=== PATIENT | female | born 1960 | race Caucasian/White ===

== ENCOUNTER 2023-03-27 15:36 | Outpatient (OUT) | payer OTHER, SELFPAY ==
[2023-03-27 16:08] LABS: Basophils Absolute Auto 0.1 10^3/uL (0.0-0.1); Basophils Percent Auto 1.3 % (0.2-2.0); Eosinophils Absolute Auto 0.2 10^3/uL (0.0-0.7); Eosinophils Percent Auto 2.8 % (0.9-7.0); Hematocrit 37.6 % (36.0-48.0); Hemoglobin 11.3 g/dL (12.0-16.0); Immature Granulocytes Abs Auto 0.03 10^3/uL (0.00-0.03); Immature Granulocytes Pct Auto 0.4 % (0.0-0.5); Lymphocytes Absolute Auto 2.5 10^3/uL (1.2-3.8); Lymphocytes Percent Auto 32.7 % (20.5-60.0); Mean Corpuscular HGB Conc 30.1 g/dL (29.9-35.2); Mean Corpuscular Hemoglobin 27.5 pg (26.7-34.0); Mean Corpuscular Volume 91.5 fL (81.0-99.0); Mean Platelet Volume 10.1 fL (9.5-13.5); Monocytes Absolute Auto 0.6 10^3/uL (0.3-0.8); Monocytes Percent Auto 7.9 % (1.7-12.0); Neutrophils Absolute Auto 4.3 10^3/uL (1.4-6.5); Neutrophils Percent Auto 54.9 % (43.0-75.0); Platelet Count 373 10^3/uL (150-450); Red Blood Count 4.11 10^6/uL (4.20-5.40); Red Cell Distribution Width 14.2 % (11.0-15.0); White Blood Count 7.7 10^3/uL (4.0-11.0)
[2023-03-27 16:22] LABS: Alanine Aminotransferase 15 U/L (14-59); Albumin Globulin Ratio 0.9; Albumin Level 3.4 g/dL (3.4-5.0); Alkaline Phosphatase 103 U/L (46-116); Anion Gap 14.5; Aspartate Amino Transferase 13 U/L (15-37); BUN Creatinine Ratio 13.9; Bilirubin Total 0.3 mg/dL (0.2-1.0); Calcium 8.7 mg/dL (8.5-10.1); Carbon Dioxide 26.6 mmol/L (21.0-32.0); Chloride 107 mmol/L (98-107); Estimated GFR (African America 40 (>=60); Estimated GFR (Non-African Ame 33 (>=60); Globulin 3.8 g/dL; Glucose 91 mg/dL (74-106); Potassium 4.1 mmol/L (3.5-5.1); Sodium 144 mmol/L (136-145); Total Protein 7.2 g/dL (6.4-8.2)
[2023-03-27 17:42] LABS: Free T4 0.89 ng/dL (0.76-1.46)
== END 2023-03-27 15:37 | disposition home or self-care (01) ==
LOC: LAB 15:38
PROVIDERS: PCP Family Medicine; Visit Provider Family Medicine
DX: Z00.00 Encounter for general adult medical examination without abnormal findings (principal); E03.9 Hypothyroidism, unspecified; R53.83 Other fatigue
CPT/HCPCS: 36415; 80053; 82607; 84439; 85025

== ENCOUNTER 2023-08-22 15:45 | Outpatient (OUT) | payer OTHER, SELFPAY ==
--- NOTE | 2023-08-22 16:02 | XR_ITS ---
The [address] [address] Patient Name: SUKHWINDER CORLEY MRN: [id number] date: 1960 Sex: F Assigned Patient Location: LAB Current Patient Location: Accession/Order Number: [id number] Exam Date: 08/22/2023 16:05 Report Date: 08/26/2023 07:12 At the request of: COLIN MITCHELL Procedure: XR knee LT 4V PROCEDURE: XR knee LT 4V COMPARISON: None. HISTORY: Left Knee Pain, Swelling Of Left Knee Joint FINDINGS: BONES:No acute fracture or dislocation. Tricompartmental osteoarthritis with [id number] articulation of the medial compartment. Marginal osteophyte formation. SOFT TISSUES:Negative. No visible soft tissue swelling. EFFUSION:Small suprapatellar joint effusion OTHER: Negative. XR/XR knee LT 4V IMPRESSION: Moderate to severe tricompartmental osteoarthritis Electronically authenticated by: RUTH GRANADOS Date: 08/26/2023 07:12
[2023-08-22 16:17] LABS: Uric Acid 3.6 mg/dL (2.6-6.0)
== END 2023-08-22 15:46 | disposition home or self-care (01) ==
LOC: LAB 15:46
PROVIDERS: PCP Family Medicine; Visit Provider Nurse Practitioner Family
DX: M25.562 Pain in left knee (principal); M25.462 Effusion, left knee; M17.12 Unilateral primary osteoarthritis, left knee
CPT/HCPCS: 36415; 73564; 84550

== ENCOUNTER 2023-11-12 10:02 | Outpatient (RCR) | payer OTHER, SELFPAY | END 2023-12-31 11:37 | disposition home or self-care (01) | LOC: PT 10:02 | PROVIDERS: PCP Family Medicine; Visit Provider Orthopaedic Surgery Orthopaedic Trauma | DX: S82.092D Other fracture of left patella, subsequent encounter for closed fracture with routine healing (principal) | CPT/HCPCS: 97110; 97112; 97140; 97161 ==

== ENCOUNTER 2024-06-23 11:57 | Outpatient (OUT) | payer MEDICARE, SELFPAY ==
--- NOTE | 2024-06-23 12:19 | ECG_ITS ---
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
[2024-06-23 12:32] LABS: Basophils Absolute Auto 0.1 10^3/uL (0.0-0.1); Basophils Percent Auto 0.6 % (0.2-2.0); Eosinophils Absolute Auto 0.2 10^3/uL (0.0-0.7); Eosinophils Percent Auto 0.9 % (0.9-7.0); Hematocrit 41.3 % (36.0-48.0); Hemoglobin 12.4 g/dL (12.0-16.0); Immature Granulocytes Abs Auto 0.04 10^3/uL (0.00-0.03); Immature Granulocytes Pct Auto 0.2 % (0.0-0.5); Lymphocytes Absolute Auto 1.5 10^3/uL (1.2-3.8); Lymphocytes Percent Auto 9.3 % (20.5-60.0); Mean Platelet Volume 10.4 fL (9.5-13.5); Monocytes Absolute Auto 0.9 10^3/uL (0.3-0.8); Monocytes Percent Auto 5.6 % (1.7-12.0); Neutrophils Absolute Auto 13.8 10^3/uL (1.4-6.5); Neutrophils Percent Auto 83.4 % (43.0-75.0); Platelet Count 295 10^3/uL (150-450); Red Blood Count 4.59 10^6/uL (4.20-5.40); Red Cell Distribution Width 14.7 % (11.0-15.0); White Blood Count 16.5 10^3/uL (4.0-11.0)
[2024-06-23 13:05] LABS: Creatinine Urine Random 129.68 mg/dL (20.00-300.00); Microalbumin Urine Random <1.3 mg/dL (<=30.0)
[2024-06-23 13:18] LABS: Alanine Aminotransferase 8 U/L (14-59); Albumin Globulin Ratio 1.1; Albumin Level 3.8 g/dL (3.4-5.0); Alkaline Phosphatase 136 U/L (46-116); Anion Gap 17.1; Aspartate Amino Transferase 15 U/L (15-37); Bilirubin Total 0.3 mg/dL (0.2-1.0); Calcium 8.4 mg/dL (8.5-10.1); Carbon Dioxide 24.2 mmol/L (21.0-32.0); Chloride 106 mmol/L (98-107); Estimated GFR (African America 46 (>=60 mL/min/1.73m^2); Estimated GFR (Non-African Ame 38 (>=60 mL/min/1.73m^2); Globulin 3.5 g/dL; Glucose 81 mg/dL (74-106); Potassium 4.3 mmol/L (3.5-5.1); Sodium 143 mmol/L (136-145); Thyroid Stimulating Hormone 4.262 uIU/mL (0.358-3.740); Total Protein 7.3 g/dL (6.4-8.2)
[2024-06-23 13:40] LABS: Free T4 0.99 ng/dL (0.76-1.46)
== END 2024-06-23 11:58 | disposition home or self-care (01) ==
LOC: LAB 12:05
PROVIDERS: PCP Family Medicine; Visit Provider Family Medicine
DX: E03.9 Hypothyroidism, unspecified (principal); I10 Essential (primary) hypertension; M89.8X1 Other specified disorders of bone, shoulder
CPT/HCPCS: 36415; 80053; 82043; 82570; 84439; 84443; 85025; 93005

== ENCOUNTER 2024-09-24 11:21 | Outpatient (OUT) | payer MEDICARE, SELFPAY ==
--- NOTE | 2024-09-24 11:24 | MM_ITS ---
Patient Name: SUKHWINDER CORLEY MR#: [id number] : 1960 Exam Date: 09/24/2024 Ordering Doctor: DR CARRILLO COTA M.D. RADIOLOGY REPORT PROCEDURE: MM TOMOSYNTHESIS SCREENING BI COMPARISON: MG MAMM SCREEN DOMENICA W CAD, 10/16/2019. MG MAMM SCREEN DOMENICA W CAD, 10/10/2018. MG MAMM DOMENICA SCRN W CAD DIG, 02/29/2016. MG MAMM DOMENICA SCRN W CAD DIG, 09/28/2013. INDICATIONS: Screening Calculator Name NCI Breast Cancer Risk Assessment Tool 5 Year Breast Cancer Risk 3.30% Lifetime Breast Cancer Risk 14.30% Personal Breast Cancer No Personal Ovarian Cancer No Treatments None Family Cancers Mother with breast cancer at age 57; Aunt-maternal with ovarian cancer at age 50; Father with colon cancer at age 75. LOCATION: [facility] BREAST COMPOSITION: There are scattered areas of fibroglandular density. FINDINGS: DIAGNOSTIC CATEGORY 1--NEGATIVE. RIGHT BREAST: No significant suspicious finding. LEFT BREAST: No significant suspicious finding. RECOMMENDATIONS: ROUTINE MAMMOGRAM AND CLINICAL EVALUATION IN 12 MONTHS. PLEASE NOTE: A NORMAL MAMMOGRAM DOES NOT EXCLUDE THE POSSIBILITY OF BREAST CANCER. A CLINICALLY SUSPICIOUS PALPABLE LUMP SHOULD BE BIOPSIED. Dictated by: Angel Peter DO on 09/24/2024 at 16:31 Approved by: Angel Peter DO on 09/24/2024 at 16:32
--- OUTSIDE RECORDS SUMMARY | 2024-09-24 11:24 | XMS_ITS | Clinical Summary ---
Author Organization [facility] Address [address] [place] [address] Phone Care Team Providers Care Supply Requirements Officer Name Role Phone Unavailable Primary Care Provider Unavailabl e Social History Tobacco Use Types Packs/Day Years Used Date Smoking Tobacco: Never Assessed Comments Unknown Sex and Gender Information Value Date Recorded Sex Assigned at Not on file Legal Sex Female 7:07 PM EST Gender Identity Not on file Sexual Orientation Not on file Plan of Treatment Not on file
--- OUTSIDE RECORDS SUMMARY | 2024-09-24 11:24 | XMS_ITS | Clinical Summary ---
Author Organization [facility] Address [address] [place] [id number] Care Team Providers Care Receiving Checker Name Role Phone Kelly Osborne MD Primary Care Provider [phone] Allergies No known active allergies Medications PARoxetine (PAXIL) 20 mg tablet Take 20 mg by mouth once daily. Active Lovastatin 40 mg tablet Take 40 mg by mouth daily at bedtime. Active levothyroxine (SYNTHROID) 88 mcg tablet Take 88 mcg by mouth daily before breakfast. Active esomeprazole (NEXIUM) 20 mg capsule Take 20 mg by mouth DAILY (6 AM). 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 17 Family History Medical History Relation Comments Colon Cancer Father Breast Cancer Mother follicular variant Thyroid cancer Sister Relation Status Comments Father Mother Sister Social History Tobacco Use Types Packs/Day Years Used Date Smoking Tobacco: Never Comments No Sex and Gender Information Value Date Recorded Sex Assigned at Female 09/02/2024 3:40 PM EDT Legal Sex Female 12:42 PM EST Gender Identity Female 09/02/2024 3:40 PM EDT Sexual Orientation Straight 09/02/2024 3: 40 PM EDT Last Filed Vital Signs Vital Sign Reading Time Taken Comments Blood Pressure 142/85 05/15/2016 1:15 PM EDT Pulse 101 05/15/2016 1:15 PM EDT Temperature 36.7 C (98 F) 05/15/2016 1:15 PM EDT Respiratory Rate 18 05/15/2016 1:15 PM EDT Oxygen Saturation 99% 02/28/2016 1:33 PM EST Inhaled Oxygen Concentration - - Weight 90.7 kg (200 lb) 05/15/2016 1:15 PM EDT Height 157.5 cm (5' 2 ) 05/15/2016 1:15 PM EDT Body Mass Index 36.58 05/15/2016 1:15 PM EDT Plan of Treatment Health Maintenance Due Date Last Done Comments Anxiety Screening 11/25/1979 Depression Screening 11/25/1979 HIV Screening 11/25/1979 Hepatitis C Screening 11/25/1979 DTaP,Tdap,Td Vaccine (1 - Tdap) 1980 Cervical Cancer Screening [address] Colonography 2006 Cologuard (FIT-DNA) 2006 Colonoscopy 2006 Colorectal Cancer Screening 2006 Fecal Occult Blood 2006 Lipid Screening 2006 Sigmoidoscopy 2006 Pneumococcal Vaccine: 50+ (1 of 1 - PCV) 11/25/2011 Shingrix Vaccine (1 of 2) 11/25/2011 Covid-19 Vaccine (1 - season) 2023 Influenza Vaccine (#1) 2024 01/07/2013 Diabetes Screening 09/20/2026 09/21/2023 RSV Vaccine (1 - 1-dose 75+ series) 2036 Care Teams Receiving Checker Relationship Specialty Start Date End Date Kelly Osborne MD [address] [place] [id number] PCP - General Family Medicine 02/23/16
--- OUTSIDE RECORDS SUMMARY | 2024-09-24 11:42 | XMS_ITS | CCD ---
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 [Entitic vol]on 06-23-2024 Platelet mean volume (Bld) [Entitic vol] 10.4 fL 9.5-13.[address] [facility] Platelets Auto (Bld) [#/Vol] on 06-23-2024 Platelets (Bld) [#/Vol] 295 10 3/uL 150-[address] [facility] RBC Auto (Bld) [#/Vol]on RBC (Bld) [#/Vol] 4.59 10 6/uL 4.20-5.40 [facility] Serum or plasma albumin/glob ulin mass ratioon 06-23-2024 Albumin/Globulin [Mass ratio] 1.1 {ratio} [facility] Serum or plasma anion gap de terminationon 06-23-2024 Anion gap [Moles/Vol] 17.1 mmol/L [facility] Laboratory - Chemistry and C hemistry - challengeon 06-18-2024 Bilirubin Ql (U) Negative [facility] Glucose (U) [Mass/Vol] Negative [facility] Ketones Ql (U) Negative [facility] pH (U) 5 [pH] [facility] Specific gravity (U) [Rel density] 1.[address] [facility] Urobilinogen (U) [Mass/Vol] 0.2 mg/dL [facility] Laboratory - Specimen inform ationon 06-18-2024 Appearance (U) cloudy [facility] Color (U) yellow [facility] Laboratory - Urinalysison Leukocyte esterase Test strip Ql (U) Negative [facility] Nitrite Ql (U) Negative [facility] Protein Ql (U) ++ [facility] No Panel Informationon 06-18 Urine Occult Blood Negative [facility] Urine Cultureon 06-18-2024 Bacteria identified Cx Nom (U) ORGANISM: Klebsiella pneumoniae (O:KLEPNE) [place] Count >100,000 Aerobic ANTONIO Charge (NMIC56) SUSCEPTIBILITY ORGANISM: O:KLEPNE ANTIBIOTIC INTERPRETATION ANTONIO Amikacin S <16 Amoxacillin/K Clavulanate S <8 Ampicillin/Sulbactam S <4 Aztreonam S <4 Cefazolin S <2 Cefepime S <2 Ceftazidime S <1 Ceftazidime/Avibactam S <4 Ceftolozane/Tazobactam S <2 Ceftriaxone S <1 Cefuroxime S 8 Ciprofloxacin S <0.25 Ertapenem S <0.5 Gentamicin S <2 Levofloxacin S <0.5 Meropenem S <1 Meropenem/Vaborbactam S <2 Nitrofurantoin I 64 Piperacillin/Tazobactam S <8 Tetracycline S <4 Tigecycline S <2 Tobramycin S <2 Trimethoprim/Sulfamethoxazo le S <0.5 S = SUSCEPTIBLE I = INTERMEDIATE R = RESISTANT BLANK = DATA NOT AVAILABLE, OR DRUG NOT ADVISABLE OR TESTED R* = RESISTANCE DUE TO EXTENDED SPECTRUM BETA-LACTAMASES ESBL = EXTENDED SPECTRUM BETA-LACTAMASE TFG = THYMIDINE-DEPENDENT STRAIN MELVIN = BETA-LACTAMASE POSITIVE IB = INDUCIBLE BETA-LACTAMASE. APPEARS IN PLACE OF 'S' WITH SPECIES KNOWN TO POSSESS INDUCIBLE BETA-LACTAMASES. POTENTIALLY THEY MAY BECOME RESISTANT TO ALL B-LACTAM DRUGS. PERFORMED BY: [place] [address] PATHOLOGIST MIXER ATTENDANT ROSSY ESPARZA M.D. Normal [facility] Comment on above: Performed By: #### H S TROP, PT, PTT, BMP, T4F, DDIMER, BNP, TSH3, CK, CBC #### [facility] [address] [place] [address] Urine cultureOrdered By: Tete Cota on 06-18-2024 Bacteria identified Cx Nom (U) Abnormal [facility] Bacteria identified Cx Nom (U) Klebsiella pneumoniae Abnormal [facility] Laboratory - Chemistry and C hemistry - challengeon 05-28-2024 Bilirubin Ql (U) Negative [facility] Glucose (U) [Mass/Vol] Negative [facility] Ketones Ql (U) Negative [facility] pH (U) 6.0 [pH] [facility] Specific gravity (U) [Rel density] 1.[address] [facility] Laboratory - Specimen inform ationon 05-28-2024 Appearance (U) cloudy [facility] Color (U) yellow [facility] Laboratory - Urinalysison Leukocyte esterase Test strip Ql (U) moderate [facility] Nitrite Ql (U) Positive [facility] Protein Ql (U) trace [facility] No Panel Informationon 05-28 Urine Occult Blood Negative [facility] Urine Urobilinogen 0.2EU/dL [facility] Urine Cultureon 05-28-2024 Bacteria identified Cx Nom (U) ORGANISM: Klebsiella pneumoniae (O:KLEPNE) [place] Count >100,000 Aerobic ANTONIO Charge (NMIC56) SUSCEPTIBILITY ORGANISM: O:KLEPNE ANTIBIOTIC INTERPRETATION ANTONIO Amikacin S <16 Amoxacillin/K Clavulanate S <8 Ampicillin/Sulbactam S 88/4 Aztreonam S <4 Cefazolin S <2 Cefepime S <2 Ceftazidime S <1 Ceftazidime/Avibactam S <4 Ceftolozane/Tazobactam S <2 Ceftriaxone S <1 Cefuroxime S <4 Ciprofloxacin S <0.25 Ertapenem S <0.5 Gentamicin S <2 Levofloxacin S <0.5 Meropenem S <1 Meropenem/Vaborbactam S <2 Nitrofurantoin I 64 Piperacillin/Tazobactam S <8 Tetracycline S <4 Tigecycline S <2 Tobramycin S <2 Trimethoprim/Sulfamethoxazo le S <0.5 S = SUSCEPTIBLE I = INTERMEDIATE R = RESISTANT BLANK = DATA NOT AVAILABLE, OR DRUG NOT ADVISABLE OR TESTED R* = RESISTANCE DUE TO EXTENDED SPECTRUM BETA-LACTAMASES ESBL = EXTENDED SPECTRUM BETA-LACTAMASE TFG = THYMIDINE-DEPENDENT STRAIN MELVIN = BETA-LACTAMASE POSITIVE IB = INDUCIBLE BETA-LACTAMASE. APPEARS IN PLACE OF 'S' WITH SPECIES KNOWN TO POSSESS INDUCIBLE BETA-LACTAMASES. POTENTIALLY THEY MAY BECOME RESISTANT TO ALL B-LACTAM DRUGS. PERFORMED BY: [place] [address] PATHOLOGIST MIXER ATTENDANT ROSSY ESPARZA M.D. Normal [facility] Comment on above: Performed By: #### C UU #### [address] X-ray reportOrdered By: Stefano Peter on 04-15-2024 Study report [facility] [address] [place] [address] XRay Report Signed Patient: Kristina Nagy MR#: [id number] : 1960 Acct:[id number] Age/Sex: 63 / F ADM Date: 5 Loc: [facility] Room: Type: REG CLI Attending Dr: Guanaco Weller DO Copies to: Guanaco Weller DO~ Ordering Provider: Guanaco Weller DO Date of Service: 04/15/24 XR/XR knee LT 3V - NOT FOR ER USE: S82.092D - Other fracture of left patella, subsequent enc... LEFT KNEE - 3 views CLINICAL HISTORY: Status post left patellectomy with patellar tendon advancement. COMPARISON: Left knee 11/06/2023 FINDINGS: Postsurgical changes involving the patella grossly unchanged. Small joint effusion. Moderate degenerative changes, unchanged. XR/XR knee LT 3V - NOT FOR ER USE IMPRESSION: NO SIGNIFICANT CHANGE IN KNEE FINDINGS. Impression dictated by: Angel Peter Jr., D.O.04/15/2024 3:17 PM Dictation Location: [place] [address] Transcribed By: [facility] 04/15/24 1517 Dictated By: Angel Peter Jr, DO 04/15/24 1516 Signed By: 04/15/[address] [facility] XR knee LT 3V - NOT FOR ER [facility] [place] 04-15-2024 XR knee LT 3V - NOT FOR ER USE [facility] [address] [place] [address] XRay Report Signed Patient: Kristina Nagy MR#: [id number] : 1960 Acct:[id number] Age/Sex: 63 / F ADM Date: 04/15/24 Loc: [facility] Room: Type: REG CLI Attending Dr: Guanaco Weller DO Copies to: Guanaco Weller DO Ordering Provider: Guanaco Weller DO Date of Service: 04/15/24 XR/XR knee LT 3V - NOT FOR ER USE: S82.092D - Other fracture of left patella, subsequent enc... LEFT KNEE - 3 views CLINICAL HISTORY: Status post left patellectomy with patellar tendon advancement. COMPARISON: Left knee 11/06/2023 FINDINGS: Postsurgical changes involving the patella grossly unchanged. Small joint effusion. Moderate degenerative changes, unchanged. XR/XR knee LT 3V - NOT FOR ER USE IMPRESSION: NO SIGNIFICANT CHANGE IN KNEE FINDINGS. Impression dictated by: Steffi Vaughn Jr..ORudi04/15/2024 3:17 PM Dictation Location: RADIO-PC-19 Transcribed By: [facility] 04/15/24 1517 Dictated By: Angel Peter Jr, DO 04/15/24 1516 Signed By: 04/15/24 1517 Normal [facility] XR knee LT 3V - NOT FOR ER [place] 11-06-2023 XR knee LT 3V - NOT FOR ER USE [facility] [address] [place] [address] XRay Report Signed Patient: Kristina Nagy MR#: [id number] [id number] : 1960 Acct:[id number] Age/Sex: 62 / F ADM Date: 11/06/23 Loc: [facility] Room: Type: [facility] Attending Dr: Guanaco Weller DO Copies to: Guanaco Weller DO Ordering Provider: Guanaco Weller DO Date of Service: 11/06/23 XR/XR knee LT 3V - NOT FOR ER USE: S82.002A - Unspecified fracture of left patella, initial ... LEFT KNEE - 4 views CLINICAL HISTORY: Status post left patellectomy with patellar tendon advancement. COMPARISON: Left knee 10/16/2023 FINDINGS: Soft tissue swelling is present. Small joint effusion. Postsurgical changes involving the patella grossly unchanged from the prior study. Medial patellofemoral joint space narrowing and moderate degenerative change similar to the prior study. XR/XR knee LT 3V - NOT FOR ER USE IMPRESSION: NO SIGNIFICANT CHANGE IN KNEE FINDINGS COMPARED TO THE PRIOR STUDY. Impression dictated by: Angel Peter Jr., D.ORudi11/06/2023 1:01 PM Dictation Location: RADIO-PC-12 Transcribed By: GALE 11/06/23 1301 Dictated By: Angel Peter Jr, DO 11/06/23 1300 Signed By: 11/06/23 1301 Normal [facility] XR knee LT 3V - NOT FOR ER [place] 10-16-2023 XR knee LT 3V - NOT FOR ER USE [facility] [address] [place] [address] XRay Report Signed Patient: Kristina Nagy MR#: [id number] : 1960 Acct:[id number] Age/Sex: 62 / F ADM Date: 10/16/23 Loc: [facility] Room: Type: [facility] CLI Attending Dr: Guanaco Weller DO Copies to: Guanaco Weller DO Ordering Provider: Guanaco Weller DO Date of Service: 10/16/23 XR/XR knee LT 3V - NOT FOR ER USE: S82.002A - Unspecified fracture of left patella, initial ... 3 views LEFT knee COMPARISON: 09/26/23 HISTORY: Partial resection of LEFT patella Unremarkable partial resection changes in the LEFT patella. No acute bony findings. Extensive bilateral patellofemoral degeneration seen with sunrise views. Small LEFT joint effusion. Mild degenerative subluxation. Mild medial lateral degenerative change. Anterior soft tissue prominence. XR/XR knee LT 3V - NOT FOR ER USE IMPRESSION: Unremarkable partial resection of the LEFT patella. Degenerative changes. Impression dictated by: Eduard Bobby M.D.10/16/2023 12:55 PM Dictation Location: [place] [address] Transcribed By: [facility] 10/16/23 1255 Dictated By: Eduard Bobby DO 10/16/23 1250 Signed By: 10/16/23 1255 Normal [facility] Activated partial thrombopla stin time (aPTT) in platelet poor plasma by coagulation aOrdered By: Sally Gonzales on 09-27-2023 aPTT Coag (PPP) [Time] 29.9 s 25.1-36.[address] [facility] Comment on above: A hematocrit value g reater than 55% may lead to inaccurate results in coagulation testing. Patients having hematocrit values >55% require a special collection tube for coagulation studies. Please contact the laboratory at [phone] for redraw instructions. Automated basophil %Ordered By: Sally Gonzales on 09-27-2023 Basophils/100 WBC (Bld) 0.5 % Normal . [facility] Comment on above: Performed By: #### H S TROP, PT, PTT, BMP, T4F, DDIMER, BNP, TSH3, CK, CBC #### [address] Automated basophil countOrde red By: Sally Gonzales on 09-27-2023 Basophils (Bld) [#/Vol] 0.1 10*3/uL Normal 0.0-0.[address] [facility] Comment on above: Result Comment: PERF ORMED BY: [place] [address] PATHOLOGIST MIXER ATTENDANT CARY GRACIA M.D. Performed By: #### H S TROP, PT, PTT, BMP, T4F, DDIMER, BNP, TSH3, CK, CBC #### [address] Automated blood monocyte cou ntOrdered By: Sally Gonzales on 09-27-2023 Monocytes (Bld) [#/Vol] 1.4 10*3/uL High 0.0-0.[address] [facility] Comment on above: Performed By: #### H S TROP, PT, PTT, BMP, T4F, DDIMER, BNP, TSH3, CK, CBC #### [address] Automated eosinophil %Ordere d By: Sally Gonzales on 09-27-2023 Eosinophils/100 WBC (Bld) 0.4 % Normal . [facility] Comment on above: Performed By: #### H S TROP, PT, PTT, BMP, T4F, DDIMER, BNP, TSH3, CK, CBC #### [address] Automated eosinophil countOr dered By: Sally Gonzales on 09-27-2023 Eosinophils (Bld) [#/Vol] 0.1 10*3/uL Normal 0.0-0.[address] [facility] Comment on above: Performed By: #### H S TROP, PT, PTT, BMP, T4F, DDIMER, BNP, TSH3, CK, CBC #### [address] Automated monocyte %Ordered By: Sally Gonzales on 09-27-2023 Monocytes/100 WBC (Bld) 10.7 % Normal . [facility] Comment on above: Performed By: #### H S TROP, PT, PTT, BMP, T4F, DDIMER, BNP, TSH3, CK, CBC #### [address] Automated neutrophil %Ordere d By: Sally Gonzales on 09-27-2023 Neutrophils/100 WBC (Bld) 75.4 % Normal . [facility] Comment on above: Performed By: #### H S TROP, PT, PTT, BMP, T4F, DDIMER, BNP, TSH3, CK, CBC #### [address] BNP ser/plasOrdered By: Westley Gonzales on 09-27-2023 Natriuretic peptide B (Bld) [Mass/Vol] 85.0 pg/mL Normal 5-[address] [facility] Comment on above: Result Comment: PERF ORMED BY: [place] [address] PATHOLOGIST MIXER ATTENDANT CARY GRACIA M.D. Performed By: #### H S TROP, PT, PTT, BMP, T4F, DDIMER, BNP, TSH3, CK, CBC #### [address] Basic Metabolic Panelon 09-02 Creatinine Clr Calc Pharmacy 50.94 Normal [facility] Comment on above: Performed By: #### H S TROP, PT, PTT, BMP, T4F, DDIMER, BNP, TSH3, CK, CBC #### [address] GFR/1.73 sq M.predicted MDRD (S/P/Bld) [Vol rate/Area] mL/min/{1.73_m2} Normal [facility] Comment on above: Performed By: #### H S TROP, PT, PTT, BMP, T4F, DDIMER, BNP, TSH3, CK, CBC #### [facility] [address] [place] [address] [facility] Bilirubin Test strip Ql (U)O rdered By: Sally Gonzales on 09-27-2023 Bilirubin Ql (U) Negative Negative [facility] CT angio chest PE protocolon 09-27-2023 CT angio chest PE protocol [facility] [place] [address] [place] [id number] Scan Report Signed Patient: Kristina Nagy MR#: [id number] 833 : 1960 Acct:[id number] Age/Sex: 62 / F ADM Date: 09/27/23 Loc: ER Room: Type: [facility] ER Attending Dr: Copies to: Sally Gonzales MD Ordering Provider: Sally Gonzales MD Date of Service: 09/27/23 CT/CT angio chest PE protocol: elevated dimer, tachycardic, r/o pe CT angio chest PE protocol 09/27/2023 8:54 PM SIGN AND SYMPTOMS: Hypertension, left knee arthroplasty, elevated d-dimer CONTRAST: 90 mL of intravenous Isovue-370 TECHNIQUE: Multidetector CT axial slices of the chest were obtained with IV contrast. Multiplanar reformats were performed and viewed on a separate workstation and reviewed to further define anatomy and possible pathology. CT was performed with one or more of the following dose reduction techniques: Automated exposure control, adjustment of the mA and/or kV according to patient size, or use of iterative reconstruction technique. COMPARISON: 02/09/2016. FINDINGS: Lower neck: There is a 1.5 cm nodule in the left thyroid lobe. Nonemergent ultrasound follow-up is recommended as malignancy is not excluded. Vessels: Within normal limits. There is no evidence of pulmonary embolism. Mediastinum and [place]el[place]: There is a fluid-filled and distended esophagus. Heart: Normal size. No pericardial effusion. Airways: Within normal limits Lungs: There is linear scarring or atelectasis in the lung bases. Focal areas of groundglass opacity right upper and right lower lobe which may be infectious or inflammatory. Pleura: Within normal limits. Chest Wall: Within normal limits. Upper Abdomen: There is evidence of prior cholecystectomy. Postsurgical changes are noted along the gastric. There is a left millimeters focal area of increased attenuation along the pancreatic head adjacent to the common bile but is unchanged compared prior exam. Nonobstructing stones are noted in the renal collecting systems. These measure up to 4 mm in greatest dimension on the right and 2 mm in greatest dimension on the left. Bones: Degenerative changes are present in the thoracolumbar spine and shoulders. Nondisplaced fractures are noted in the left third through fifth ribs anteriorly and in the anterolateral right third and fourth ribs. These are of uncertain acuity. CT/CT angio chest PE protocol IMPRESSION: Focal areas of groundglass opacity right upper and right lower lobe which may be infectious or inflammatory. There is no evidence of pulmonary embolism. Nondisplaced fractures are noted in the left third through fifth ribs anteriorly and in the anterolateral right third and fourth ribs. These are of uncertain acuity. There is a 1.5 cm nodule in the left thyroid lobe. Nonemergent ultrasound follow-up is recommended as malignancy is not excluded. Nonobstructing stones are noted in the renal collecting systems. These measure up to 4 mm in greatest dimension on the right and 2 mm in greatest dimension on the left. Impression dictated by: Gerard Crews M.D.09/27/2023 10:01 PM Dictation Location: [place] [address] Transcribed By: [facility] 09/27/232200 Dictated By: Gerard Crews II, MD 09/27/232147 Signed By: 09/27/232200 Normal [facility] Calcium [Mass/volume] in Ser um or PlasmaOrdered By: Sally Gonzales on 09-27-2023 Calcium [Mass/Vol] 8.9 mg/dL Normal 8.6-10.3 [facility] Comment on above: Performed By: #### H S TROP, PT, PTT, BMP, T4F, DDIMER, BNP, TSH3, CK, CBC #### [facility] [address] [place] [address] Carbon dioxide, total [Moles /volume] in Serum or PlasmaOrdered By: Sally Gonzales on 09-27-2023 CO2 [Moles/Vol] 25.2 mmol/L Normal 21.0-31.0 [facility] Comment on above: Performed By: #### H S TROP, PT, PTT, BMP, T4F, DDIMER, BNP, TSH3, CK, CBC #### [address] Chloride [Moles/volume] in S abhishek or PlasmaOrdered By: Sally Gonzales on 09-27-2023 Chloride [Moles/Vol] 103 mmol/L Normal 98-107 [facility] Comment on above: Performed By: #### H S TROP, PT, PTT, BMP, T4F, DDIMER, BNP, TSH3, CK, CBC #### [address] Color of Urine by AutoOrdere d By: Sally Gonzales on 09-27-2023 Color (U) Light-yellow Normal Yellow [facility] Comment on above: Order Comment: Name Collection Type:: Clean-Voided Midstream Performed By: #### H S TROP, PT, PTT, BMP, T4F, DDIMER, BNP, TSH3, CK, CBC #### [address] Complete Blood Count Auto Di ffon 09-27-2023 Mean Corpuscular HGB Conc 32.9 g/dL Normal 32.0-35.0 [facility] Comment on above: Performed By: #### H S TROP, PT, PTT, BMP, T4F, DDIMER, BNP, TSH3, CK, CBC #### [place] [address] [place] Monocytes/100 WBC (Bld) 15.10 % Normal 0.00-20.00 [facility] Comment on above: Performed By: #### H S TROP, PT, PTT, BMP, T4F, DDIMER, BNP, TSH3, CK, CBC #### [address] NRBC% 0.1 /100{WBC} Normal 0-0.5 [facility] Comment on above: Performed By: #### H S TROP, PT, PTT, BMP, T4F, DDIMER, BNP, TSH3, CK, CBC #### [facility] [address] Creatine kinase [Enzymatic a ctivity/volume] in Serum or PlasmaOrdered By: Sally Gonzales on 09-27-2023 CK [Catalytic activity/Vol] 152 U/L Normal 30-[address] [facility] Comment on above: Performed By: #### H S TROP, PT, PTT, BMP, T4F, DDIMER, BNP, TSH3, CK, CBC #### [facility] [address] Creatinine [Mass/volume] in Serum or PlasmaOrdered By: Sally Gonzales on 09-27-2023 Creatinine [Mass/Vol] 1.04 mg/dL Normal 0.60-1.20 [facility] Comment on above: Performed By: #### H S TROP, PT, PTT, BMP, T4F, DDIMER, BNP, TSH3, CK, CBC #### [address] D-Dimer High Sensitivityon 0 09-27-2023 D-Dimer High Sensitivity 1851 ng/mL High 0-243 [facility] Comment on above: Result Comment: The reference range for D-dimer is <243 ng/mL D-dimer units. D-dimer results must be used in conjunction with a clinical pretest probability (PTP) assessment model for deep vein thrombosis (DVT) and pulmonary embolism (PE). Results <230 ng/mL d-dimer units can be used as a negative predictor in patients with low or moderate probability for DVT/PE. Results above the exclusion threshold of 230 ng/ml D-dimer units for DVT/PE may indicate the need for further diagnostic testing. D-Dimer can be increased in hospitalized patients due to co-morbid conditions. A hematocrit value greater than 55% may lead to inaccurate results in coagulation testing. Patients having hematocrit values >55% require a special collection tube for coagulation studies. Please contact the laboratory at [phone] for redraw instructions. PERFORMED BY: [place] [address] PATHOLOGIST MIXER ATTENDANT CARY GRACIA M.D. Performed By: #### H S TROP, PT, PTT, BMP, T4F, DDIMER, BNP, TSH3, CK, CBC #### [facility] [address] [place] [address] ECG 12 lead ECGon 09-27-2023 ECG 12 lead ECG [facility] [place] [address] [place] [address] Electrocardiograph Report Signed Patient: Kristina Nagy MR#: [id number] 833 : 1960 Acct:[id number] Age/Sex: 62 / F ADM Date: 09/27/23 Loc: ER Room: Type: [facility] ER Attending Dr: Ordering Provider: Sally Gonzales MD Date of Service: 09/27/23 ECG/ECG 12 lead ECG: Recheck/Abnormal Lab/Rx Copies to: Test Reason : Blood Pressure : 186/113 mmHG Vent. Rate : 94 BPM Atrial Rate : 94 BPM P-R Int : 158 ms QRS Dur : 82 ms QT Int : 362 ms P-R-T Axes : 61 -27 45 degrees QTcB Int : 452 ms Normal sinus rhythm Borderline ECG No previous ECGs available Confirmed by Sally Gonzales MD ([id number]) on 09/27/2023 10:26:31 PM Referred By: Electronically Signed By: Sally Gonzales MD Transcribed By: [facility] Signed By Sally Gonzales MD 09/02 Normal [facility] Erythrocyte distribution wid th [Ratio] by Automated countOrdered By: Sally Gonzales on 09-27-2023 Erythrocyte distribution width (RBC) [Ratio] 15.2 % Normal 11.9-15.[address] [facility] Comment on above: Performed By: #### H S TROP, PT, PTT, BMP, T4F, DDIMER, BNP, TSH3, CK, CBC #### [facility] [address] [place] [address] Erythrocytes [#/volume] in B lood by Automated countOrdered By: Sally Gonzales on 09-27-2023 RBC (Bld) [#/Vol] 3.51 10*6/uL Low 3.60-5.00 [facility] Comment on above: Performed By: #### H S TROP, PT, PTT, BMP, T4F, DDIMER, BNP, TSH3, CK, CBC #### [facility] [address] [place] [address] [place] Fibrin D-dimer [Presence] in Platelet poor plasma by Latex agglutinationOrdered By: Sally Gonzales on 09-27-2023 Fibrin D-dimer LA Ql (PPP) 1851 ng/mL High 0-[address] [facility] Comment on above: The reference range for D-dimer is <243 ng/mL D-dimer units.D-dimer results must be used in conjunction with a clinicalpretest probability (PTP) assessment model for deep veinthrombosis (DVT) and pulmonary embolism (PE). Results <230ng/mL d-dimer units can be used as a negative predictor inpatients with low or moderate probability for DVT/PE.Results above the exclusion threshold of 230 ng/ml D-dimerunits for DVT/PE may indicate the need for furtherdiagnostic testing.D-Dimer can be increased in hospitalized patients due toco-morbid conditions.A hematocrit value greater than 55% may lead to inaccurate results in coagulation testing. Patients having hematocrit values >55% require a special collection tube for coagulation studies. Please contact the laboratory at [phone] for redraw instructions. Glucose [Mass/volume] in Ser um or PlasmaOrdered By: Sally Gonzales on 09-27-2023 Glucose [Mass/Vol] 130 mg/dL High 70-100 [facility] Comment on above: ADA recommended refe rence rangeRandom Glucose Reference Range is dependent on time and content of last meal. Glucose of more than 200 mg/dL in a nonstressed, ambulatory subject supports the diagnosis of Diabetes Mellitus. Result Comment: [place] Glucose Reference Range is dependent on time and content of last meal. Glucose of more than 200 mg/dL in a nonstressed, ambulatory subject supports the diagnosis of Diabetes Mellitus. ADA recommended reference range Performed By: #### H S TROP, PT, PTT, BMP, T4F, DDIMER, BNP, TSH3, CK, CBC #### [facility] [address] [place] [address] [place] Glucose [Mass/volume] in Uri ne by Test stripOrdered By: Sally Gonzales on 09-27-2023 Glucose Test strip (U) [Mass/Vol] Normal mg/dL Normal [facility] Hematocrit [Volume Fraction] of Blood by Automated countOrdered By: Sally Gonzales on 09-27-2023 Hematocrit (Bld) [Volume fraction] 30.1 % Low 34.0-46.[address] [facility] Comment on above: Performed By: #### H S TROP, PT, PTT, BMP, T4F, DDIMER, BNP, TSH3, CK, CBC #### [facility] [address] Hemoglobin Test strip Ql (U) Ordered By: Sally Gonzales on 09-27-2023 Hemoglobin Ql (U) Negative Negative [facility] Hemoglobin [Mass/volume] in BloodOrdered By: Sally Gonzales on 09-27-2023 Hemoglobin (Bld) [Mass/Vol] 9.9 g/dL Low 11.8-15.[address] [facility] Comment on above: Performed By: #### H S TROP, PT, PTT, BMP, T4F, DDIMER, BNP, TSH3, CK, CBC #### [facility] [address] INR in Platelet poor plasma by Coagulation assayOrdered By: Sally Gonzales on 09-27-2023 INR Coag (PPP) [Relative time] 0.9 {INR} Normal [facility] Comment on above: INR Therapeutic Rang e A) Pre- and Peroperative OAT started two weeks before surgery. NOT HIP SURGERY: 1.5 - 2.5 HIP SURGERY: 2 - 3B) Primary and secondary prevention of venous THROMBOSIS: 2 - 3C) Active venous thrombosis, pulmonary embolismand prevention of recurrent venous thrombosis: 2 - 3D) Prevention of arterial thromboembolismincluding patients with mechanical heart valves: 3 - 4.5 Result Comment: INR Therapeutic Range A) Pre- and Peroperative OAT started two weeks before surgery. NOT HIP SURGERY: 1.5 - 2.5 HIP SURGERY: 2 - 3 B) Primary and secondary prevention of venous THROMBOSIS: 2 - 3 C) Active venous thrombosis, pulmonary embolism and prevention of recurrent venous thrombosis: 2 - 3 D) Prevention of arterial thromboembolism including patients with mechanical heart valves: 3 - 4.5 Performed By: #### H S TROP, PT, PTT, BMP, T4F, DDIMER, BNP, TSH3, CK, CBC #### [facility] [address] Ketones [Presence] in Urine by Test stripOrdered By: Sally Gonzales on 09-27-2023 Ketones Ql (U) Negative Normal Negative [facility] Comment on above: Order Comment: Name Collection Type:: Clean-Voided Midstream Performed By: #### H S TROP, PT, PTT, BMP, T4F, DDIMER, BNP, TSH3, CK, CBC #### [facility] [address] Leukocyte esterase [Presence ] in Urine by Test stripOrdered By: Sally Gonzales on 09-27-2023 Leukocyte esterase Test strip Ql (U) Negative Normal Negative [facility] Comment on above: Order Comment: Name Collection Type:: Clean-Voided Midstream Performed By: #### H S TROP, PT, PTT, BMP, T4F, DDIMER, BNP, TSH3, CK, CBC #### [address] Leukocytes [#/volume] correc abigail for nucleated erythrocytes in Blood by Automated counOrdered By: Sally Gonzales on 09-27-2023 WBC corrected for nucl RBC Auto (Bld) [#/Vol] 13.5 10*3/uL High 3.8-11.[address] [facility] Leukocytes [#/volume] in Blo od by Automated countOrdered By: Sally Gonzales on 09-27-2023 WBC (Bld) [#/Vol] 13.5 10*3/uL High 3.8-11.6 [facility] Comment on above: Performed By: #### H S TROP, PT, PTT, BMP, T4F, DDIMER, BNP, TSH3, CK, CBC #### [facility] [address] Lymphocytes [#/volume] in Bl ood by Automated countOrdered By: Sally Gonzales on 09-27-2023 Lymphocytes (Bld) [#/Vol] 1.7 10*3/uL Normal 1.00-4.[address] [facility] Comment on above: Performed By: #### H S TROP, PT, PTT, BMP, T4F, DDIMER, BNP, TSH3, CK, CBC #### [facility] [address] [place] [address] [place] Lymphocytes/100 leukocytes i n Blood by Automated countOrdered By: Sally Gonzales on 09-27-2023 Lymphocytes/100 WBC (Bld) 13.0 % Normal . [facility] Comment on above: Performed By: #### H S TROP, PT, PTT, BMP, T4F, DDIMER, BNP, TSH3, CK, CBC #### [facility] [address] MCH [Entitic mass] by Automa abigail countOrdered By: Sally Gonzales on 09-27-2023 MCH (RBC) [Entitic mass] 28.2 pg Normal 24.7-34.[address] [facility] Comment on above: Performed By: #### H S TROP, PT, PTT, BMP, T4F, DDIMER, BNP, TSH3, CK, CBC #### [facility] [address] MCHC Auto (RBC) [Mass/Vol]Or dered By: Sally Gonzales on 09-27-2023 MCHC (RBC) [Mass/Vol] 32.9 g/dL 32.0-35.0 [facility] MCV [Entitic volume] by Auto mated countOrdered By: Sally Gonzales on 09-27-2023 MCV (RBC) [Entitic vol] 85.8 fL Normal 80-[address] [facility] Comment on above: Performed By: #### H S TROP, PT, PTT, BMP, T4F, DDIMER, BNP, TSH3, CK, CBC #### [facility] [address] Monocyte distribution width [Entitic volume] in Blood by AutomatedOrdered By: Sally Gonzales on 09-27-2023 Monocyte distribution width Auto (Bld) [Entitic vol] 15.10 % 0.00-20.[address] [facility] Neutrophils [#/volume] in Bl ood by Automated countOrdered By: Sally Gonzales on 09-27-2023 Neutrophils (Bld) [#/Vol] 10.2 10*3/uL High 1.8-7.[address] [facility] Comment on above: Performed By: #### H S TROP, PT, PTT, BMP, T4F, DDIMER, BNP, TSH3, CK, CBC #### [facility] [address] Nitrite Test strip Ql (U)Ord ered By: Sally Gonzales on 09-27-2023 Nitrite Ql (U) Negative Negative [facility] No Panel InformationOrdered By: Sally Gonzales on 09-27-2023 Estimated GFR (CKD-EPI) > 60.0 mL/Min [facility] Creatinine Clearance (Chem 50.[address] [facility] Nucleated erythrocytes [Pres ence] in Blood by Automated countOrdered By: Sally Gonzales on 09-27-2023 Nucleated RBC Auto Ql (Bld) 0.1 /100{WBC} 0-0.[address] [facility] Partial Thromboplastin Timeo n 09-27-2023 aPTT Coag (Bld) [Time] 29.9 s Normal 25.1-36.5 [facility] Comment on above: Result Comment: A he matocrit value greater than 55% may lead to inaccurate results in coagulation testing. Patients having hematocrit values >55% require a special collection tube for coagulation studies. Please contact the laboratory at [phone] for redraw instructions. Performed By: #### H S TROP, PT, PTT, BMP, T4F, DDIMER, BNP, TSH3, CK, CBC #### [facility] [address] [place] [address] [place] Platelet mean volume [Entiti c volume] in Blood by Automated countOrdered By: Sally Gonzales on 09-27-2023 Platelet mean volume (Bld) [Entitic vol] 7.8 fL Normal 6.3-10.[address] [facility] Comment on above: Performed By: #### H S TROP, PT, PTT, BMP, T4F, DDIMER, BNP, TSH3, CK, CBC #### [facility] [address] [place] [address] [place] Platelets [#/volume] in Bloo d by Automated countOrdered By: Sally Gonzales on 09-27-2023 Platelets (Bld) [#/Vol] 392 10*3/uL Normal 150-[address] [facility] Comment on above: Performed By: #### H S TROP, PT, PTT, BMP, T4F, DDIMER, BNP, TSH3, CK, CBC #### [facility] [address] Potassium [Moles/volume] in Serum or PlasmaOrdered By: Sally Gonzales on 09-27-2023 Potassium [Moles/Vol] 4.5 mmol/L Normal 3.5-5.1 [facility] Comment on above: Performed By: #### H S TROP, PT, PTT, BMP, T4F, DDIMER, BNP, TSH3, CK, CBC #### [facility] [address] Protein Test strip (U) [Mass /Vol]Ordered By: Sally Gonzales on 09-27-2023 Protein (U) [Mass/Vol] Negative Negative [facility] Prothrombin time (PT)Ordered By: Sally Gonzales on 09-27-2023 PT Coag (PPP) [Time] 10.9 s Normal 9.0-12.9 [facility] Comment on above: A hematocrit value g reater than 55% may lead to inaccurate results in coagulation testing. Patients having hematocrit values >55% require a special collection tube for coagulation studies. Please contact the laboratory at [phone] for redraw instructions. Result Comment: A he matocrit value greater than 55% may lead to inaccurate results in coagulation testing. Patients having hematocrit values >55% require a special collection tube for coagulation studies. Please contact the laboratory at [phone] for redraw instructions. Performed By: #### H S TROP, PT, PTT, BMP, T4F, DDIMER, BNP, TSH3, CK, CBC #### [facility] [address] Serum or plasma anion gap de terminationOrdered By: Sally Gonzales on 09-27-2023 Anion gap [Moles/Vol] 12.3 mmol/L Normal 6.0-15.[address] [facility] Comment on above: Performed By: #### H S TROP, PT, PTT, BMP, T4F, DDIMER, BNP, TSH3, CK, CBC #### [facility] [address] Sodium [Moles/volume] in Ser um or PlasmaOrdered By: Sally Gonzales on 09-27-2023 Sodium [Moles/Vol] 136 mmol/L Normal 136-145 [facility] Comment on above: Performed By: #### H S TROP, PT, PTT, BMP, T4F, DDIMER, BNP, TSH3, CK, CBC #### [address] Specific gravity Test strip (U) [Rel density]Ordered By: Sally Gonzales on 09-27-2023 Specific gravity (U) [Rel density] 1.017 1.001-1.[address] [facility] Thyrotropin [Units/volume] i n Serum or PlasmaOrdered By: Sally Gonzales on 09-27-2023 TSH Qn 11.54 m[IU]/L High 0.45-5.[address] [facility] Comment on above: Result Comment: PERF ORMED BY: [place] [address] PATHOLOGIST MIXER ATTENDANT CARY GRACIA M.D. Performed By: #### H S TROP, PT, PTT, BMP, T4F, DDIMER, BNP, TSH3, CK, CBC #### [address] Thyroxine (T4) free [Mass/vo lume] in Serum or PlasmaOrdered By: Sally Gonzales on 09-27-2023 Free T4 [Mass/Vol] 1.07 ng/dL Normal 0.61-1.12 [facility] Comment on above: Performed By: #### H S TROP, PT, PTT, BMP, T4F, DDIMER, BNP, TSH3, CK, CBC #### [address] Troponin I High Sensitivityo n 09-27-2023 Troponin I High Sensitivity 6.9 pg/mL Normal 0.0-15.0 [facility] Comment on above: Result Comment: PERF ORMED BY: [place] [address] PATHOLOGIST MIXER ATTENDANT CARY GRACIA M.D. Performed By: #### H S TROP, PT, PTT, BMP, T4F, DDIMER, BNP, TSH3, CK, CBC #### [address] Troponin I High Sensitivity 7.5 pg/mL Normal 0.0-15.0 [facility] Comment on above: Result Comment: PERF ORMED BY: [place] [address] PATHOLOGIST MIXER ATTENDANT CARY GRACIA M.D. Performed By: #### H S TROP, PT, PTT, BMP, T4F, DDIMER, BNP, TSH3, CK, CBC #### [address] Troponin I.cardiac [Mass/vol ume] in Serum or Plasma by Detection limit <= 0.01 ng/Ordered By: Sally Gonzales on 09-27-2023 Troponin I.cardiac DL <= 0.01 ng/mL [Mass/Vol] 6.9 pg/mL 0.0-15.[address] [facility] Urea nitrogen [Mass/volume] in Serum or PlasmaOrdered By: Sally Gonzales on 09-27-2023 Urea nitrogen [Mass/Vol] 16 mg/dL Normal 7-[address] [facility] Comment on above: Performed By: #### H S TROP, PT, PTT, BMP, T4F, DDIMER, BNP, TSH3, CK, CBC #### [address] Urinalysison 09-27-2023 Bilirubin,Urine Negative Normal Negative [facility] Comment on above: Order Comment: Name Collection Type:: Clean-Voided Midstream Performed By: #### H S TROP, PT, PTT, BMP, T4F, DDIMER, BNP, TSH3, CK, CBC #### [place] [address] [place] Glucose Ql (U) Normal Normal Normal [facility] Comment on above: Order Comment: Name Collection Type:: Clean-Voided Midstream Performed By: #### H S TROP, PT, PTT, BMP, T4F, DDIMER, BNP, TSH3, CK, CBC #### [address] Nitrite,Urine Negative Normal Negative [facility] Comment on above: Order Comment: Name Collection Type:: Clean-Voided Midstream Performed By: #### H S TROP, PT, PTT, BMP, T4F, DDIMER, BNP, TSH3, CK, CBC #### [address] Occult Blood,Urine Negative Normal Negative [facility] Comment on above: Order Comment: Name Collection Type:: Clean-Voided Midstream Result Comment: PERF ORMED BY: [place] [address] PATHOLOGIST MIXER ATTENDANT CARY GRACIA M.D. Performed By: #### H S TROP, PT, PTT, BMP, T4F, DDIMER, BNP, TSH3, CK, CBC #### [address] Protein,Urine Negative Normal Negative [facility] Comment on above: Order Comment: Name Collection Type:: Clean-Voided Midstream Performed By: #### H S TROP, PT, PTT, BMP, T4F, DDIMER, BNP, TSH3, CK, CBC #### [address] Specificy Gordon,Urine 1.017 Normal 1.001-1.03 0 [facility] Comment on above: Order Comment: Name Collection Type:: Clean-Voided Midstream Performed By: #### H S TROP, PT, PTT, BMP, T4F, DDIMER, BNP, TSH3, CK, CBC #### [address] Urobilinogen,Urine Normal Normal Normal [facility] Comment on above: Order Comment: Name Collection Type:: Clean-Voided Midstream Performed By: #### H S TROP, PT, PTT, BMP, T4F, DDIMER, BNP, TSH3, CK, CBC #### [facility] [address] Urine appearanceOrdered By: Sally Gonzales on 09-27-2023 Appearance (U) Clear Normal Clear [facility] Comment on above: Order Comment: Name Collection Type:: Clean-Voided Midstream Performed By: #### H S TROP, PT, PTT, BMP, T4F, DDIMER, BNP, TSH3, CK, CBC #### [facility] [address] [place] [address] Urobilinogen Test strip (U) [Mass/Vol]Ordered By: Sally Gonzales on 09-27-2023 Urobilinogen (U) [Mass/Vol] Normal mg/dL Normal [facility] XR chest 2V*on 09-27-2023 XR chest 2V* [facility] Main [place] [address] [place] [address] XRay Report Signed Patient: Kristina Nagy MR#: [id number] [id number] : 1960 Acct:[id number] Age/Sex: 62 / F ADM Date: 09/27/23 Loc: ER Room: Type: [facility] ER Attending Dr: Copies to: Sally Gonzales MD Ordering Provider: Sally Gonzales MD Date of Service: 09/27/23 XR/XR chest 2V*: Recheck/Abnormal Lab/Rx XR chest 2V* 09/27/2023 7:24 PM SIGNS AND SYMPTOMS: Hypertension PROTOCOL: Frontal and lateral radiographs of the chest COMPARISON: 09/15/2011 FINDINGS: The trachea is midline. The heart and mediastinal structures are within normal limits. The lung parenchyma is clear. The bony thorax is intact. Degenerative changes are noted in the shoulders and thoracic spine. There is evidence of prior cholecystectomy in the right upper quadrant. XR/XR chest 2V* IMPRESSION: No acute cardiopulmonary pathology. Impression dictated by: Gerard Crews M.D.09/27/2023 8:46 PM Dictation Location: [id number]-[id number] Transcribed By: GALE 09/27/232045 Dictated By: Gerard Crews II, MD 09/27/232044 Signed By: 09/27/232045 Normal [facility] XR knee LT 2Von 09-27-2023 XR knee LT 2V [facility] Main [place] [address] [place] [id number] XRay Report Signed Patient: Kristina Nagy MR#: [id number] : 1960 Acct:[id number] Age/Sex: 62 / F ADM Date: 09/26/23 Loc: [place] Room: Type: [facility] Attending Dr: Guanaco Weller DO Copies to: Guanaco Weller DO Ordering Provider: Guanaco Weller DO Date of Service: 09/26/23 XR/XR knee LT 2V: LT KNEE ORIF (HARDWARE WAS PLACED DURING OR, THEN REMOVED) Fluoroscopic assessment for left patella ORIF. HISTORY: Hardware placement removed. 7 image was obtained. Cumulative Air Kerma in mGy: 3.36 mGy Intraoperative assessment for left patellar fixation XR/XR knee LT 2V IMPRESSION: Left patellar fixation fluoroscopic assessment Impression dictated by: Eduard Bobby M.D.09/27/2023 8:22 AM Dictation Location: [place] [address] Transcribed By: [facility] 09/27/23821 Dictated By: Eduard Bobby DO 09/27/23819 Signed By: 09/27/23821 Normal [facility] pH of Urine by Test stripOrd ered By: Sally Gonzales on 09-27-2023 pH (U) 6.0 [pH] Normal 5.0-9.[address] [facility] Comment on above: Order Comment: Name Collection Type:: Clean-Voided Midstream Performed By: #### H S TROP, PT, PTT, BMP, T4F, DDIMER, BNP, TSH3, CK, CBC #### [facility] [address] [place], [place] [id number] [facility] XR knee LT 3V - NOT FOR ER U [place] 09-25-2023 XR knee LT 3V - NOT FOR ER USE [facility] [address] [place] [address] XRay Report Signed Patient: Kristina Nagy MR#: [id number] 833 : 1960 Acct:[id number] Age/Sex: 62 / F ADM Date: 09/25/23 Loc: [facility] Room: Type: [facility] Attending Dr: Guanaco Weller DO Copies to: Guanaco Weller DO Ordering Provider: Guanaco Weller DO Date of Service: 09/25/23 XR/XR knee LT 3V - NOT FOR ER USE: PATELLA FRACTURE LEFT KNEE - 3 views CLINICAL HISTORY: Follow-up patellar fracture. COMPARISON: Left knee series 09/21/2023 FINDINGS: The patient's patellar fracture is grossly unchanged in alignment and healing compared to the prior study. Bones are grossly demineralized. Mild degenerative changes with minimal joint effusion. XR/XR knee LT 3V - NOT FOR ER USE IMPRESSION: NO SIGNIFICANT CHANGE IN PATELLAR FRACTURE FINDINGS. Impression dictated by: Angel Peter Jr., D.ORudi09/25/2023 3:51 PM Dictation Location: [place] [address] Transcribed By: [facility] 09/25/23 1551 Dictated By: Angel Peter Jr, DO 09/25/23 1550 Signed By: 09/25/23 1551 Normal [facility] ABO/Rhon 09-21-2023 ABO/Rh Positive Invalid Interpretation Code [facility] Comment on above: Performed By: #### 2 [id number] #### [facility] [address] [place] [address] ABO/Rh History Checkon 09-20 ABO/Rh History Check Patient discharged prior Normal [facility] Comment on above: Order Comment: pt in ct Performed By: #### 1 [id number] #### [facility] [address] [place] [address] ABSCon 09-21-2023 ABSC Gel Interp Negative Normal [facility] Comment on above: Performed By: #### 1 [id number] #### [facility] [address] [place] [address] BLOOD BANKOrdered By: Shannan williamson on 09-21-2023 ABO/Rh Interp Positive Invalid Interpretation Code [facility] BB Subsection ABSC Gel Interp Negative (09/21/23 12:29 PM) Normal [facility] BB Subsection BMPon 09-21-2023 Anion gap [Moles/Vol] 13 mmol/L Normal 6-16 [facility] Comment on above: Performed By: #### 2 [id number] #### [facility] [address] [place] [address] Calcium [Mass/Vol] 8.0 mg/dL Low 8.9-11.1 [facility] Comment on above: Performed By: #### 2 [id number] #### [facility] [address] [place] [address] Chloride [Moles/Vol] 106 mmol/L Normal 101-111 [facility] Comment on above: Performed By: #### 2 [id number] #### [facility] [address] [place] [address] CO2 [Moles/Vol] 21 mmol/L Normal 21-31 [facility] Comment on above: Performed By: #### 2 [id number] #### [facility] [address] [place] [address] Creatinine [Mass/Vol] 1.6 mg/dL High 0.5-1.3 [facility] Comment on above: Performed By: #### 2 [id number] #### [facility] [address] [place] [address] Glucose [Mass/Vol] 90 mg/dL Normal 55-199 [facility] Comment on above: Performed By: #### 2 [id number] #### [facility] [address] [place] [address] Potassium [Moles/Vol] 4.9 mmol/L Normal 3.5-5.3 [facility] Comment on above: Performed By: #### 2 [id number] #### [facility] [address] [place] [address] Sodium [Moles/Vol] 135 mmol/L Normal 135-145 [facility] Comment on above: Performed By: #### 2 [id number] #### [facility] [address] [place] [address] Urea nitrogen [Mass/Vol] 32 mg/dL High 5-21 [facility] Comment on above: Performed By: #### 2 [id number] #### [facility] [address] [place] [address] Urea nitrogen/Creatinine [Mass ratio] 20 No Units Normal 10-20 [facility] Comment on above: Performed By: #### 2 [id number] #### [facility] [address] [place] [address] Blood Bank ID#on 09-21-2023 BBID# [id number] Invalid Interpretation Code [facility] Comment on above: Performed By: #### 1 [id number] #### [facility] [address] [place] [address] CBC w/ Auto Diffon 4 Basophils/100 WBC (Bld) 0.8 % Normal 0.0-2.0 [facility] Comment on above: Performed By: #### 2 [id number] #### [facility] [address] [place] [address] Basophils/Leukocytes Auto (Bld) [Pure # fraction] 0.1 E9/L Normal 0.0-0.2 [facility] Comment on above: Performed By: #### 2 [id number] #### [facility] [address] [place] [address] Eosinophils (Bld) [#/Vol] 0.2 E9/L Normal 0.0-0.5 [facility] Comment on above: Performed By: #### 2 [id number] #### [facility] [address] [place] [address] Eosinophils/100 WBC (Bld) 2.7 % Normal 0.0-8.0 [facility] Comment on above: Performed By: #### 2 [id number] #### [facility] [address] [place] [address] Erythrocyte distribution width (RBC) [Ratio] 15.3 % High 10.9-14.2 [facility] Comment on above: Performed By: #### 2 [id number] #### [facility] [address] [place] [address] Hematocrit (Bld) [Volume fraction] 30.0 % Low 34.0-46.0 [facility] Comment on above: Performed By: #### 2 [id number] #### [facility] [address] [place] [address] Hemoglobin (Bld) [Mass/Vol] 10.3 g/dL Low 12.0-16.0 [facility] Comment on above: Performed By: #### 2 [id number] #### [facility] [address] [place] [address] Lymphocytes (Bld) [#/Vol] 1.1 E9/L Normal 1.0-4.0 [facility] Comment on above: Performed By: #### 2 [id number] #### [facility] [address] [place] [address] Lymphocytes/100 WBC (Bld) 15.1 % Normal 14.0-50.0 [facility] Comment on above: Performed By: #### 2 [id number] #### [facility] [address] [place] [address] MCH (RBC) [Entitic mass] 29.2 pg Normal 27.0-34.0 [facility] Comment on above: Performed By: #### 2 [id number] #### [facility] [address] [place] [address] MCHC (RBC) [Mass/Vol] 34.3 g/dL Normal 31.4-36.0 [facility] Comment on above: Performed By: #### 2 [id number] #### [facility] [address] [place] [address] MCV (RBC) [Entitic vol] 85.1 fL Normal 80.0-100.0 [facility] Comment on above: Performed By: #### 2 [id number] #### [facility] [address] [place] [address] Monocytes (Bld) [#/Vol] 0.4 E9/L Normal 0.2-1.0 [facility] Comment on above: Performed By: #### 2 [id number] #### [facility] [address] [place] [address] Neutrophils (Bld) [#/Vol] 5.7 E9/L Normal 2.0-7.5 [facility] Comment on above: Performed By: #### 2 [id number] #### [facility] [address] [place] [address] Neutrophils/100 WBC (Bld) 75.6 % High 36.0-75.0 [facility] Comment on above: Performed By: #### 2 [id number] #### [facility] [address] [place] [address] Platelet 254.0 E9/L Normal 150.0-500. 0 [facility] Comment on above: Performed By: #### 2 [id number] #### [facility] [address] [place] [address] Platelet mean volume (Bld) [Entitic vol] 8.6 fL Normal 6.4-10.8 [facility] Comment on above: Performed By: #### 2 [id number] #### [facility] [address] [place] [address] RBC (Bld) [#/Vol] 3.5 E12/L Low 4.3-5.9 [facility] Comment on above: Performed By: #### 2 [id number] #### [facility] [address] [place] [address] WBC corrected for nucl RBC Auto (Bld) [#/Vol] 7.6 E9/L Normal 4.0-11.0 [facility] Comment on above: Performed By: #### 2 [id number] #### [facility] [address] [place] [address] CHEMISTRYOrdered By: SYSTEM SYSTEM on 09-21-2023 Albumin [Mass/Vol] 3.4 g/dL Normal 3.3 - 5.0 gm/dL Remisol Chem Albumin/Globulin [Mass ratio] 1.3 {ratio} Normal 1.1 - 2.2 Remisol Chem ALP [Catalytic activity/Vol] 82 [iU]/d Normal 21 - 98 Int._Unit/ L Remisol Chem ALT No additional P-5'-P [Catalytic activity/Vol] 12 [iU]/d Normal 6 - 46 Int._Unit/ L Remisol Chem Anion gap [Moles/Vol] 13 mmol/L Normal 6 - 16 mEq/L Remisol Chem AST [Catalytic activity/Vol] 14 [iU]/d Normal 5 - 43 Int._Unit/ L Remisol Chem Bilirubin [Mass/Vol] 0.3 mg/dL Normal 0.0 - 1 .1 mg/dL Remisol Chem Bilirubin.direct [Mass/Vol] 0.0 mg/dL Normal 0.0 - 0.4 mg/dL Remisol Chem Bilirubin.indirect [Mass or moles/Vol] 0.3 mg/dL Normal 0.1 - 0.9 mg/dL Remisol Chem Calcium [Mass/Vol] 8.0 mg/dL Low 8.9 - 11. 1 mg/dL [facility] Chloride [Moles/Vol] 106 mmol/L Normal 101 - 1 11 mmol/L [facility] Chem CO2 [Moles/Vol] 21 mmol/L Normal 21 - 31 mmol/L [facility] Chem Creatinine [Mass/Vol] 1.6 mg/dL High 0.5 - 1.3 mg/dL Remisol Chem eGFR 36 mL/min/1.73 m2 Low >=59mL/min /1.73 m2 Remisol Chem Ethanol Lvl mg/dL Normal <=11mg/dL Rem[facility] Globulin (S) [Mass/Vol] 2.7 g/dL Normal 1.4 - 4.0 gm/dL [facility] Chem Glucose [Mass/Vol] 90 mg/dL Normal 55 - 199 mg/dL Remisol Chem Lactic Acid Lvl 1.0 mmol/L Normal 0.5 - 2.2 mmol/L Remisol Chem Lipase [Catalytic activity/Vol] 24 U/L Normal 13 - 58 unit/L [facility] Potassium [Moles/Vol] 4.9 mmol/L Normal 3.5 - 5.3 mmol/L Remisol Chem Protein [Mass/Vol] 6.1 g/dL Normal 6.0 - 7.8 gm/dL [facility] Chem Sodium [Moles/Vol] 135 mmol/L Normal 135 - 145 mmol/L Remisol Chem Troponin HS 4.00 pg/mL Low 10.10 - 27.10 pg/mL [facility] Comment on above: Interpretive Data: T he 95% CI (Confidence Interval) PPV (Positive Predictive Value) for myocardial infarction in females is 38 pg/mL, in males 51 pg/mL. The results should be used in conjunction with clinical conditions of myocardial infarction. (Access High Sensitivity Troponin I Instructions For Use, Rohini Eagan, October 2017) Urea nitrogen [Mass/Vol] 32 mg/dL High 5 - 21 mg/dL Remisol Chem Urea nitrogen/Creatinine [Mass ratio] 20 mg/mg Normal 10 - 20 Remisol Chem COAGULATIONOrdered By: Shannan Alcazar on 09-21-2023 aPTT Coag (PPP) [Time] 34.0 s Normal 25.1 - 36.5 second(s) [facility] Comment on above: Interpretive Data: Soto phillips 15 days - 4 weeks 1 - 5 months 6 - 11 months 1 - 5 years 6 - 10 years 11 - 17 years PTT Mean: 35.4 (27.6-45.6) Mean: 33.5 (24.8-40.7) Mean: 32.4 (25.1-40.7) Mean: 31.6 (24.0-39.2) Mean: 31.6 (26.9-38.7) Mean: 31.0 (24.6-38.4) Pediatric Reference ranges were obtained from a study by Barry Epperson et al. prepared from 1437 samples obtained at 7 different centers using the same coagulation reagent and instrumentation as [facility]. Currently there are no coagulation studies available worldwide for children to 14 days, and no normal ranges. Heparin therapeutic range (represented by Anti-Factor Xa activity of 0.2 - 0.4 U/mL) corresponds to PTT of 56.6 - 109.0 sec. INR Coag (PPP) [Relative time] 0.95 {INR} Invalid Interpretation Code [facility] Comment on above: Interpretive Data: I NR results are specifically intended to assess patients stabilized on long-term Anticoagulation therapy suggested INR s Less Intensive Anticoagulation 2.0 3.0 Conventional Range 3.0 4.5 PT Coag (PPP) [Time] 10.6 s Normal 9.4 - 1 2.5 second(s) [facility] Comment on above: Interpretive Data: 1 5 days - 4 weeks 1 - 5 months 6 -11 months 1-5 years 6-10 years 11 -17 years Mean: 11.2 (9.5-12.6) Mean: 11.0 (9.7-12.8) Mean: 11.0 (9.8-13.0) Mean: 11.3 (9.9-13.4) Mean: 11.7 (10.0-14.6) Mean: 11.8 (10.0 - 14.1) Pediatric Reference ranges were obtained from a study by Barry Epperson et al. prepared from 1437 samples obtained at 7 different centers using the same coagulation reagent and instrumentation as [facility]. Currently there are no coagulation studies available worldwide for children to 14 days, and no normal ranges. CT Abdomen/Pelvis w/ Contras ton 09-21-2023 CT Abdomen/Pelvis w/ Contrast Exam Date/Time: 09/21/2023 12:23 EDT Reason for Exam: ABDOMINAL TRAUMA;Trauma Report Refer to concurrent CT chest dictation. All CT scans at this facility use dose modulation, iterative reconstruction, and/or weight based dosing when appropriate to reduce radiation dose to as low as reasonably achievable. Ordering Provider: Olman Paulson FINAL REPORT Dictated: 09/21/2023 12:45 pm Vince Villareal MD Signed (Electronic Signature): 09/21/2023 12:45 pm Signed by: Vince Villareal MD Transcribed by: GARRICK Technologist: DANIELA Technical Comments GFR (mL/min/1/73m2) trauma Contrast: Isovue 300 Contrast amount in ml's: 130 [address] [facility] [address] Chest w/ Contraston 09-20 CT Chest w/ Contrast Exam Date/Time: 09/21/2023 12:23 EDT Reason for Exam: CHEST TRAUMA, MOD-SEVERE;Trauma Report IMPRESSION: Patchy groundglass peribronchovascular opacities, most extensively involving the right upper lobe, as discussed. These are nonspecific and most likely infectious/inflammatory in etiology, but in the traumatic setting could possibly represent lung contusions. No pleural effusion or pneumothorax. No acute traumatic process in the abdomen/pelvis. Esophageal findings as discussed. No acute fracture or traumatic malalignment in the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 ####Test performed at: [place] [address] Erythrocytes (RBC) 0.000 10*6/uL Normal 0-0.012 [facility] Comment on above: Order Comment: CBN: YESCampus: MAIN Performed By: #### L 200.24851 ####Test performed at: [place] [address] Hematocrit (HCT) 37.7 % Normal 36.0-48.0 [facility] Comment on above: Order Comment: CBN: YESCampus: MAIN Performed By: #### L 200.43540 ####Test performed at: [place] [address] Hemoglobin mass conc (Bld) 11.2 g/dL Low 12.0-15.0 [facility] Comment on above: Order Comment: CBN: YESCampus: MAIN Result Comment: Delt a: 8.9 on 08/18/16-0500 Performed By: #### L 200.65142 ####Test performed at: [place] [id number] IG % 0.3 % Normal [facility] Comment on above: Order Comment: CBN: YESCampus: MAIN Performed By: #### L 200.51594 ####Test performed at: [place] [address] IG ABS 0.02 K/uL Normal 0-0.05 [facility] Comment on above: Order Comment: CBN: YESCampus: MAIN Performed By: #### L 200.07514 ####Test performed at: [address] [address] Lymphocytes 2.5 10*3/uL Normal 1.2-3.5 [facility] Comment on above: Order Comment: CBN: YESCampus: MAIN Performed By: #### L 200.67758 ####Test performed at: [address] [address] Lymphocytes/100 leukocytes 39.6 % Normal [facility] Comment on above: Order Comment: CBN: YESCampus: MAIN Performed By: #### L 200.61185 ####Test performed at: [address] [address] MCH 25.8 pg Normal 25.4-34.6 [facility] Comment on above: Order Comment: CBN: YESCampus: MAIN Performed By: #### L 200.82297 ####Test performed at: [address] [address] MCHC mass conc (RBC) 29.7 g/dL Low 31.5-36.5 [facility] Comment on above: Order Comment: CBN: YESCampus: MAIN Performed By: #### L 200.56222 ####Test performed at: [address] [address] MCV 86.9 fL Normal 79.0-98.0 [facility] Comment on above: Order Comment: CBN: YESCampus: MAIN Performed By: #### L 200.55413 ####Test performed at: [address] [address] MONO ABS 0.7 K/uL Normal 0.0-1.0 [facility] Comment on above: Order Comment: CBN: YESCampus: MAIN Performed By: #### L 200.91224 ####Test performed at: [address] [address] Monocytes/100 leukocytes 11.4 % Normal [facility] Comment on above: Order Comment: CBN: YESCampus: MAIN Performed By: #### L 200.83779 ####Test performed at: [address] [address] Neutrophils 2.8 10*3/uL Normal 1.4-6.6 [facility] Comment on above: Order Comment: CBN: YESCampus: MAIN Performed By: #### L 200.22366 ####Test performed at: [address] [address] Neutrophils/100 WBC Auto (Bld) 44.2 % Normal [facility] Comment on above: Order Comment: CBN: YESCampus: MAIN Performed By: #### L 200.57391 ####Test performed at: [address] [address] NRBC % 0.0 /100 WBC Normal 0-0.2 [facility] Comment on above: Order Comment: CBN: YESCampus: MAIN Performed By: #### L 200.87785 ####Test performed at: [address] [address] Platelet mean volume (PMV) 10.2 fL Normal 8.7-12.4 [facility] Comment on above: Order Comment: CBN: YESCampus: MAIN Performed By: #### L 200.24713 ####Test performed at: [address] [address] Platelets 445 10*3/uL High 140-440 [facility] Comment on above: Order Comment: CBN: YESCampus: MAIN Performed By: #### L 200.05873 ####Test performed at: [place] [address] WBC (Leukocytes) 6.4 10*3/uL Normal 3.9-11.0 [facility] Comment on above: Order Comment: CBN: YESCampus: MAIN Performed By: #### L 200.23279 ####Test performed at: [address] [address] COMP META PANELon 09-06-2016 Alanine aminotransferase (ALT) 15 U/L Normal 13-61 [facility] Comment on above: Order Comment: CBN: YESCampus: MAIN Performed By: #### L 500.79617, L500.14708 ####Test performed at: [place] [id number] Albumin 2.8 g/dL Low 3.4-5.0 [facility] Comment on above: Order Comment: CBN: YESCampus: MAIN Performed By: #### L 500.37794, L500.68357 ####Test performed at: [place] [address] ALK PHOS TOTAL 137 U/L High 45-117 [facility] Comment on above: Order Comment: CBN: YESCampus: MAIN Performed By: #### L 500.76820, L500.58046 ####Test performed at: [place] [address] Aspartate aminotransferase (AST) 18 U/L Normal 15-37 [facility] Comment on above: Order Comment: CBN: YESCampus: MAIN Performed By: #### L 500.27092, L500.66986 ####Test performed at: [place] [address] BILI TOTAL 0.3 mg/dL Normal 0.2-1.0 [facility] Comment on above: Order Comment: CBN: YESCampus: MAIN Performed By: #### L 500.94763, L500.54710 ####Test performed at: [address] [address] Calcium 8.4 mg/dL Low 8.5-10.1 [facility] Comment on above: Order Comment: CBN: YESCampus: MAIN Performed By: #### L 500.50539, L500.59094 ####Test performed at: [address] [address] Chloride 108 mmol/L High 98-107 [facility] Comment on above: Order Comment: CBN: YESCampus: MAIN Performed By: #### L 500.83545, L500.20621 ####Test performed at: [place] [address] CO2 29 mmol/L Normal 21-32 [facility] Comment on above: Order Comment: CBN: YESCampus: MAIN Performed By: #### L 500.00243, L500.26759 ####Test performed at: [address] [address] Creatinine 1.070 mg/dL High 0.550-1.02 0 [facility] Comment on above: Order Comment: CBN: YESCampus: MAIN Performed By: #### L 500.43376, L500.86933 ####Test performed at: [address] [address] Glucose mass conc 84 mg/dL Normal 74-106 [facility] Comment on above: Order Comment: CBN: YESCampus: MAIN Performed By: #### L 500.52940, L500.01722 ####Test performed at: [address] [address] Potassium molar conc 4.6 mmol/L Normal 3.5-5.1 [facility] Comment on above: Order Comment: CBN: YESCampus: MAIN Performed By: #### L 500.07904, L500.25351 ####Test performed at: [place] [address] Protein 7.2 g/dL Normal 6.4-8.2 [facility] Comment on above: Order Comment: CBN: YESCampus: MAIN Performed By: #### L 500.97167, L500.17260 ####Test performed at: [address] [address] Sodium 142 mmol/L Normal 136-145 [facility] Comment on above: Order Comment: CBN: YESCampus: MAIN Performed By: #### L 500.37294, L500.35430 ####Test performed at: [address] [address] Urea nitrogen 16 mg/dL Normal 7-18 [facility] Comment on above: Order Comment: CBN: YESCampus: MAIN Performed By: #### L 500.90328, L500.08725 ####Test performed at: [place] [address] CT ABD/PEL WATER MINERVA W CONTR ASon 09-06-2016 CT ABD/PEL WATER MINERVA W CONTRAS STUDY:CT ABD/PEL WATER MINERVA W CONTRAS; 09/06/2016 5:50 pmINDICATION:F/U INTRAABDOMINAL ABSCESS.COMPARISON:None.ACC ESSION NUMBER(S):[id number] ERING CLINICIAN:Edin Coughlin:CT of the abdomen and pelvis was performed. Contiguous axial imageswere obtained at 3 mm slice thickness through the abdomen and pelvis.Coronal and sagittal reconstructions at 3 mm slice thickness wereperformed. 100 mL Omnipaque 350 ml of contrast administeredintravenously without immediate complication.FINDINGS:LOWER CHEST:New moderate left pleural effusion with overlying atelectasis.ABDOMEN:LIVER:U nremarkableBILE DUCTS:Not dilated.GALLBLADDER:AbsentP ANCREAS:UnremarkableSPLEEN: UnremarkableADRENAL GLANDS:UnremarkableKIDNEYS AND URETERS:Unremarkable without hydronephrosis.PELVIS:BLADD ER:Partially distended.REPRODUCTIVE ORGANS:No gross abnormality.BOWEL:Postopera tive changes firm Geoff-en-Y gastric bypass are noted. Nofindings of bowel obstruction or inflammation.The previous large upper abdominal fluid collection has completelyresolved. A left upper quadrant drainage catheter is in place.Unremarkable appendix. Unremarkable mesentery.VESSELS:Moderate aortoiliac atherosclerosis without aneurysm. The majorvisceral arterial branches are patent.IVC and major branches are grossly patent.Major portal venous branches are patent.PERITONEUM AND RETROPERITONEUM:No free fluid or free air. No abdominal or pelvic lymphadenopathy.BONE AND ABDOMINAL WALL:No acute skeletal findings. Degenerative changes of the spine.IMPRESSION:1. Large upper abdominal abscess has completely resolved. Left upperquadrant pigtail drainage catheter still in place.2. New moderate left pleural effusion. Normal [facility] GFR ESTIMATEon 09-06-2016 IF AMER > 60 Normal > 60 [facility] Comment on above: Order Comment: CBN: YESCampus: MAIN Result Comment: eGFR (Estimated GFR) Units of measure:mL/min/1.73 meters sq.*CALCULATION REVISED 12/21/2014;IDMS-traceable MDRD equationeGFR is derived from the reexpressed MDRD Study equationusing the following parameters: serum creatinine, age,gender and race. An eGFR<60 mL/min/1.73m2 for >3 monthsis consistent with chronic kidney disease. Refer to KDOQIguidelines for clinical interpretation. Performed By: #### L 500.61374, L500.76531 ####Test performed at: [place] [address] IF non-AFR AMER 53 Low > 60 [facility] Comment on above: Order Comment: CBN: YESCampus: MAIN Performed By: #### L 500.05285, L500.65722 ####Test performed at: [place] [address] Vital Signs Date Time Vital Sign Value Performing Clinician Facility 06-23-2024 11:16-0400 Body height 157.48 cm Carrillo Cota MD Work Phone: [facility] 06-23-2024 11:16-0400 Body mass index (BMI) [Ratio] 28.3 kg/m2 Carrillo Cota MD Work Phone: [facility] 06-23-2024 11:16-0400 Body weight 70.3 kg Carrillo Cota MD Work Phone: [facility] 06-23-2024 11:16-0400 Diastolic blood pressure 90 mm[Hg] Carrillo Cota MD Work Phone: [facility] 06-23-2024 11:16-0400 Heart rate 87 /min Carrillo Cota MD Work Phone: [facility] 06-23-2024 11:16-0400 Systolic blood pressure 146 mm[Hg] Carrillo Cota MD Work Phone: [facility] 05-28-2024 10:43-0400 Diastolic blood pressure 92 mm[Hg] Carrillo Cota MD Work Phone: [facility] 05-28-2024 10:43-0400 Systolic blood pressure 158 mm[Hg] Carrillo Cota MD Work Phone: [facility] 05-28-2024 09:53-0400 Body height 157.48 cm Carrillo Cota MD Work Phone: [facility] 05-28-2024 09:53-0400 Body mass index (BMI) [Ratio] 29.2 kg/m2 Carrillo Cota MD Work Phone: [facility] 05-28-2024 09:53-0400 Body temperature 97.6 [degF] Carrillo Cota MD Work Phone: [facility] 05-28-2024 09:53-0400 Body weight 72.57 kg Carrillo Cota MD Work Phone: [facility] 05-28-2024 09:53-0400 Diastolic blood pressure 99 mm[Hg] Carrillo Cota MD Work Phone: [facility] 05-28-2024 09:53-0400 Heart rate 79 /min Carrillo Cota MD Work Phone: [facility] 05-28-2024 09:53-0400 Respiratory rate 14 /min Carrillo Cota MD Work Phone: [facility] 05-28-2024 09:53-0400 SaO2% (BldA) [Mass fraction] 99 % Carrillo Cota MD Work Phone: [facility] 05-28-2024 09:53-0400 Systolic blood pressure 192 mm[Hg] Carrillo Cota MD Work Phone: [facility] 09-27-2023 22:58-0400 Diastolic blood pressure 106 mm[Hg] MD Carrillo Cota Work Phone: [facility] 09-27-2023 22:58-0400 Heart rate 83 /min MD Carrillo Cota Work Phone: [facility] 09-27-2023 22:58-0400 Respiratory rate 18 /min MD Carrillo Cota Work Phone: [facility] 09-27-2023 22:58-0400 SaO2% (BldA) [Mass fraction] 98 % MD Carrillo Cota Work Phone: [facility] 09-27-2023 22:58-0400 Systolic blood pressure 187 mm[Hg] MD Carrillo Cota Work Phone: [facility] 09-27-2023 17:33-0400 Body height 156.21 cm MD Carrillo Ctoa Work Phone: [facility] 09-27-2023 17:33-0400 Body weight 70.3 kg MD Carrillo Cota Work Phone: [facility] 09-27-2023 17:29-0400 Body temperature 98.4 [degF] MD Carrillo Cota Work Phone: [facility] 09-26-2023 18:30-0400 Diastolic blood pressure 83 mm[Hg] MD Carrillo Cota Work Phone: [facility] 09-26-2023 18:30-0400 Heart rate 82 /min MD Carrillo Cota Work Phone: [facility] 09-26-2023 18:30-0400 Respiratory rate 20 /min MD Carrillo Cota Work Phone: [facility] 09-26-2023 18:30-0400 SaO2% (BldA) [Mass fraction] 97 % MD Carrillo Cota Work Phone: [facility] 09-26-2023 18:30-0400 Systolic blood pressure 146 mm[Hg] MD Carrillo Cota Work Phone: [facility] 09-26-2023 16:30-0400 Body temperature 97.4 [degF] MD Carrillo Cota Work Phone: [facility] 09-26-2023 16:30-0400 Inhaled oxygen flow rate 6 L/min MD Carrillo Cota Work Phone: [facility] 09-26-2023 15:05-0400 Body height 154.94 cm MD Carrillo Cota Work Phone: [facility] 09-26-2023 15:05-0400 Body mass index (BMI) [Ratio] 29.1 kg/m2 MD Carrillo Cota Work Phone: [facility] 09-26-2023 15:05-0400 Body weight 70 kg MD Carrillo Cota Work Phone: [facility] 09-25-2023 12:22-0400 Body height 156.21 cm MD Carrillo Cota Work Phone: [facility] 09-25-2023 12:22-0400 Body mass index (BMI) [Ratio] 28.8 kg/m2 MD Carrillo Cota Work Phone: [facility] 09-25-2023 12:22-0400 Body weight 70.3 kg MD Carrillo Cota Work Phone: [facility] 09-21-2023 13:00-0400 Diastolic blood pressure 70 mm[Hg] Olman Khurram [facility] 09-21-2023 13:00-0400 Heart rate 78 /min Olman Khurram [facility] 09-21-2023 13:00-0400 Respiratory rate 16 /min Olman Khurram [facility] 09-21-2023 13:00-0400 Systolic blood pressure 130 mm[Hg] Olman Khurram [facility] 09-21-2023 12:00-0400 Body temperature 98.78 [degF] Olman Khurram [facility] 09-21-2023 12:00-0400 Diastolic blood pressure 71 mm[Hg] Olman Khurram [facility] 09-21-2023 12:00-0400 Systolic blood pressure 127 mm[Hg] Olman Khurram [facility] 09-21-2023 11:50-0400 Body temperature 98.6 [degF] Olman Khurram [facility] 09-21-2023 11:50-0400 Diastolic blood pressure 80 mm[Hg] Olman Khurram [facility] 09-21-2023 11:50-0400 Heart rate 98 /min Olman Khurram [facility] 09-21-2023 11:50-0400 Respiratory rate 14 /min Olman Khurram [facility] 09-21-2023 11:50-0400 SaO2% (BldA) [Mass fraction] 100 % Olman Khurram [facility] 09-21-2023 11:50-0400 Systolic blood pressure 137 mm[Hg] Olman Khurram [facility] 08-21-2023 15:42-0400 Body height 156.21 cm [facility] 08-21-2023 15:42-0400 Body mass index (BMI) [Ratio] 29 kg/m2 [facility] 08-21-2023 15:42-0400 Body weight 70.76 kg [facility] 08-21-2023 15:42-0400 Diastolic blood pressure 90 mm[Hg] [facility] 08-21-2023 15:42-0400 Heart rate 96 /min [facility] 08-21-2023 15:42-0400 SaO2% (BldA) [Mass fraction] 98 % [facility] 08-21-2023 15:42-0400 Systolic blood pressure 136 mm[Hg] [facility] 02-15-2023 10:00-0500 Body height 156.21 cm Carrillo Cota Other [employer] [facility] [employer] Other 02-15-2023 10:00-0500 Body mass index (BMI) [Ratio] 29.55 kg/m2 Carrillo Cota Other [employer] Other 02-15-2023 10:00-0500 Body temperature 97.9 [degF] Carrillo Cota Other [employer] Other 02-15-2023 10:00-0500 Body weight 72.12 kg Carrillo Cota Other [employer] Other 02-15-2023 10:00-0500 Diastolic blood pressure 86 mm[Hg] Carrillo Cota Other [employer] Other 02-15-2023 10:00-0500 SaO2% (BldA) [Mass fraction] 96 % Carrillo Cota Other [employer] Other 02-15-2023 10:00-0500 Systolic blood pressure 142 mm[Hg] Carrillo Cota Other [employer] [facility] [employer] Other 09-28-2022 09:32-0400 Diastolic blood pressure 97 mm[Hg] Brenden Dunhamurany [facility] 09-28-2022 09:32-0400 Heart rate 64 /min Brenden Mourany [facility] 09-28-2022 09:32-0400 Respiratory rate 16 /min Brenden [employer] [facility] 09-28-2022 09:32-0400 SaO2% (BldA) [Mass fraction] 100 % Brenden Locky [facility] 09-28-2022 09:32-0400 Systolic blood pressure 146 mm[Hg] Brenden Dunhamurany [facility] 08-31-2022 09:00-0400 Body height 156.21 cm Carrillo Cota Other [employer] Other 08-31-2022 09:00-0400 Body mass index (BMI) [Ratio] 31.04 kg/m2 Carrillo Cota Other [employer] Other 08-31-2022 09:00-0400 Body weight 75.75 kg Carrillo Cota Other [employer] Other 08-31-2022 09:00-0400 Diastolic blood pressure 89 mm[Hg] Carrillo Cota Other [employer] Other 08-31-2022 09:00-0400 Systolic blood pressure 135 mm[Hg] Carrillo Cota Other [employer] Other Encounters Encounter Date Encounter Type Care Provider Facility Start: 09-09-2024 End: 09-09-2024 Departed Referred Carrillo Cota MD -[facility] [place] Work Phone: Start: 09-09-2024 End: 09-09-2024 ambulatory Carrillo Cota MD Work Phone: [facility] Work Phone: Start: 09-09-2024 End: 09-09-2024 Patient encounter procedure Carrillo Cota MD -[facility] Work Phone: Start: 06-23-2024 End: 06-23-2024 ambulatory Carrillo Cota MD Work Phone: [facility] Work Phone: Start: 06-23-2024 End: 06-23-2024 Patient encounter procedure Carrillo Cota MD Work Phone: [facility] Work Phone: Start: 06-18-2024 End: 06-18-2024 ambulatory Carrillo Cota MD Work Phone: [facility] Work Phone: Start: 06-18-2024 End: 06-18-2024 Departed Referred Carrillo Cota MD Work Phone: [facility] [place] Work Phone: Start: 06-18-2024 End: 06-18-2024 Patient encounter procedure Carrillo Cota MD Work Phone: [facility] Work Phone: Start: 05-28-2024 End: 05-28-2024 Patient encounter procedure Carrillo Cota MD Work Phone: [facility] Work Phone: Start: 05-28-2024 End: 05-28-2024 ambulatory Carrillo Cota MD Work Phone: [facility] Work Phone: Start: 04-15-2024 End: 04-15-2024 ambulatory aCrrillo Cota MD Work Phone: [facility] Work Phone: Start: 04-15-2024 End: 04-15-2024 Patient encounter procedure Carrillo Cota MD Work Phone: [facility] Work Phone: Start: 04-15-2024 End: 04-15-2024 Patient encounter procedure Carrillo Cota MD Work Phone: [facility] Start: 04-15-2024 End: 04-15-2024 ambulatory Carrillo Cota MD Work Phone: [facility] Work Phone: Start: 01-15-2024 End: 01-15-2024 ambulatory Carrillo Cota MD Work Phone: [facility] Work Phone: Start: 01-15-2024 End: 01-15-2024 Patient encounter procedure Carrillo Cota MD Work Phone: [facility] Work Phone: Start: 12-04-2023 End: 12-04-2023 ambulatory MD Carrillo Cota Work Phone: [facility] Work Phone: Start: 12-04-2023 End: 12-04-2023 Patient encounter procedure MD Carrillo Cota Work Phone: [facility] [employer] Work Phone: Start: 11-06-2023 End: 11-06-2023 ambulatory MD Carrillo Cota Work Phone: [facility] Work Phone: Start: 11-06-2023 End: 11-06-2023 Patient encounter procedure MD Carrillo Cota Work Phone: [facility] Work Phone: Start: 10-16-2023 End: 10-16-2023 ambulatory MD Carrillo Cota Work Phone: [facility] Work Phone: Start: 10-16-2023 End: 10-16-2023 Patient encounter procedure MD Carrillo Cota Work Phone: [facility] Work Phone: Start: 10-16-2023 End: 10-16-2023 Patient encounter procedure MD Carrillo Ctoa Work Phone: [facility] Start: 10-16-2023 End: 10-16-2023 ambulatory MD Carrillo Cota Work Phone: [facility] Work Phone: Start: 09-27-2023 End: 09-27-2023 Emergency department patient visit MD Carrillo Cota Work Phone: [facility] Work Phone: Start: 09-26-2023 Non-patient / Non-visit MD Carrillo Cota Work Phone: [facility] Work Phone: Start: 09-26-2023 End: 09-26-2023 Admission to same day surgery center MD Carrillo Cota Work Phone: [facility] [place] Start: 09-26-2023 End: 09-26-2023 ambulatory MD Carrillo Cota Work Phone: [facility] Work Phone: Start: 09-25-2023 End: 09-25-2023 ambulatory MD Carrillo Cota Work Phone: [facility] Work Phone: Start: 09-25-2023 End: 09-25-2023 Patient encounter procedure MD Carrillo Cota Work Phone: [facility] Work Phone: Start: 09-21-2023 End: 09-21-2023 Emergency department patient visit Olman Paulson [facility] Start: 08-22-2023 Non-patient / Non-visit MD Carrillo Cota Work Phone: [facility] Work Phone: Start: 08-21-2023 End: 08-21-2023 ambulatory [facility] Work Phone: Start: 08-21-2023 End: 08-21-2023 Patient encounter procedure [facility] Work Phone: Start: 05-23-2023 Non-patient / Non-visit [facility] Work Phone: Start: 04-09-2023 End: 04-09-2023 ambulatory Carrillo Cota Other [employer] Other Start: 04-09-2023 Telephone encounter Carrillo Cota [facility] Start: 02-15-2023 End: 02-15-2023 ambulatory Carrillo Cota Other [employer] Other Start: 02-15-2023 Office outpatient visit 10 minutes Carrillo Cota [facility] Start: 12-03-2022 End: 12-03-2022 ambulatory Carrillo Cota Other [employer] Other Start: 12-03-2022 Telephone encounter Carrillo Cota [facility] Start: 09-28-2022 End: 09-28-2022 ambulatory CARRILLO COTA Facility:[facility] Start: 09-28-2022 End: 09-28-2022 Patient encounter procedure Brenden Baca [facility] Start: 09-06-2022 End: 09-06-2022 ambulatory Carrillo Cota Other [employer] Other Start: 09-06-2022 Telephone encounter Carrillo Cota [facility] Start: 08-31-2022 End: 08-31-2022 ambulatory Carrillo Cota Other [employer] Other Start: 08-31-2022 Encounter for genera l adult medical examination without abnormal findings Carrillo Cota [facility] Start: 08-31-2022 Periodic preventive med est patient 40-64yrs Carrillo Cota [facility] Start: 06-17-2020 Adult health examination Carrillo Cota Other [employer] Other Start: 06-17-2020 End: 06-18-[address] CARRILLO COTA Facility:[facility] Start: 10-16-2019 End: 10-17-[address] CARRILLO COTA Facility:[facility] Start: 09-06-2016 Ambulatory Edin Lozano Facility:[facility] Start: 09-06-2016 Ambulatory Facility:[id number] Start: 05-15-2016 End: 05-16-2016 Ambulatory CRAIG ZARATE [facility] Procedures Date Procedure Procedure Detail Performing Clinician Start: 06-18-2024 Urine culture Carrillo Cota MD Work Phone: Start: 04-15-2024 X-ray of left knee, three views Carrillo padilla MD Work Phone: Start: 11-06-2023 X-ray of left knee MD Carrillo Cota Work Phone: Start: 10-16-2023 X-ray of left knee MD Carrillo Cota Work Phone: Start: 09-27-2023 CT angiography of thorax MD Carrillo Cota Work Phone: Start: 09-27-2023 Plain chest X-ray MD Carrillo Cota Work Phone: Start: 09-26-2023 X-ray of left knee MD Carrillo Cota Work Phone: Start: 09-26-2023 Open reduction of fracture of patella with internal fixation MD Carrillo Cota Work Phone: Start: 09-25-2023 X-ray of left knee MD Carrillo Cota Work Phone: Start: 02-15-2019 Esophagogastroduodenoscopy Brenden Baca Comment on above: DX Hiatal hernia w ulcertative esophagit is Start: 07-11-2016 Esophagogastroduodenoscopy Brenden Baca Start: 09-14-2014 Screening mammography Carrillo Beata Other Start: 09-14-2013 General examination of patient Carrillo ross Other Bypass of stomach Brenden fisher Cholecystectomy Brenden Baca Dilation and curettage Brenden Baca Plan of Treatment Date Care Activity Detail Author Start: 09-09-2024 Bacteria identified in Urine by Culture Urine Culture [facility] Start: 09-09-2024 End: 09-09-[address] [facility] Start: 06-18-2024 Bacteria identified in Urine by Culture Urine Culture [facility] Start: 06-18-20[address] [facility] Start: 05-28-[address] [facility] Start: 04-15-2024 X-ray of left knee, three views XR knee LT 3V - NOT FOR ER USE [facility] Start: 04-15-2024 XR Knee - left [address] [facility] Start: 11-06-2023 X-ray of left knee XR knee LT 3V - NOT FOR ER USE [facility] Start: 11-06-2023 XR Knee - left [address] [facility] Start: 10-16-2023 X-ray of left knee XR knee LT 3V - NOT FOR ER USE [facility] Start: 10-16-2023 XR Knee - left [address] [facility] Start: 09-26-2023 X-ray of left knee XR knee LT 2V [facility] Start: 09-26-2023 XR Knee - left [address] [facility] Start: 09-26-2023 End: 09-26-[address] [facility] Start: 09-25-2023 X-ray of right knee XR knee RT 3V - NOT FOR ER USE [facility] Start: 09-25-2023 XR Knee - right [address] [facility] Comprehensive metabo lic 2000 panel - Serum or Plasma [facility] EKG 12 channel panel [facility] MG Breast - bilatera l Screening [facility] Patient Education [facility] Work Phone: Patient referral [facility] Work Phone: XR Knee - left 4 Views [facility] Immunizations Immunization Date Immunization Notes Care Provider Cynthia barrett 01-07-2013 influenza virus vaccine, unspecified formulation Brenden Baca [facility] [place] Payers Date Payer Category Payer Unknown [id number] 2023 Unknown [id number] 2023 Self-pay [id number] 2023 Unknown [id number] 2022 Unknown [id number] 2016 Unknown [id number] 1960 Unknown [id number] 2.16.84 [id number] 1961 Unknown [id number] 2.16.84 [id number] 1961 Unknown [id number] 2.16.8 [id number] 1961 Unknown [id number] 2.16.8 [id number] 1961 Unknown [id number] 2.16.8 [id number] 1961 Unknown [id number] 2.16.8 [id number] Unknown [id number] Unknown [id number] Unknown Self Pay [id number] Unknown [id number] Unknown Umpire LAYA [id number] Unknown [id number] 2.16.8 [id number] Unknown [id number] 2.16.8 40.1.585632.3.579.2.531 Unknown [id number] 2.16.8 [id number] Unknown [id number] 2.16.8 40.1.532060.3.579.2.531 Unknown [id number] 2.16.8 40.1.727497.3.579.2.531 Unknown [id number] .16.8 [id number] Unknown [id number] 2.16.8 40.1.461455.3.579.2.531 Unknown [id number] 2.16.8 40.1.714970.3.579.2.531 Unknown [id number] 2.16.8 [id number] Social History Date Type Detail Facility Tobacco smoking stat [facility] Unknown if ever smoked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 May 9:50am Elevated blood pressure reading May 282024 9:50am UTI (urinary tract infection) June 11:03am Chief Complaint Admit Date S82.092D - Other fracture of left patell a, subsequ April 15, 2024 9:32am 3 months April 15, 2024 10:55am Dysuria May 28, 2024 9:5 0am UA, Pressure, odor, cloudy June 18, 2 025 11:03am Urinary Tract Infection / UTI June 11:15am UC f/u;BP Check June 23, 2024 11: 09am Reason for Visit Admit Date Left patella fracture April 15 10:55am Other specified postprocedural states [facility] 2024 10:55am Acute cystitis with hematuria May 9:50am Elevated blood pressure reading May 282024 9:50am UTI (urinary tract infection) June 11:03am Benign essential HTN June 23, 2024 11 :09am Hypothyroidism June 23, 2024 11: 09am Left shoulder pain June 23, 2024 11: 09am Pain of left scapula June 23, 2024 11 :09am Recurrent UTI (urinary tract infection) June 23, 2024 11:09am Chief Complaint Admit Date UA, Pressure, odor, cloudy June 18, 2 025 11:03am Urinary Tract Infection / UTI June 11:15am UC f/u;BP Check June 23, 2024 11: 09am UA, frequency, burning September 09, 2024 9: 59am Reason for Visit Admit Date UTI (urinary tract infection) June 11:03am Benign essential HTN June 23, 2024 11 :09am Hypothyroidism June 23, 2024 11: 09am Left shoulder pain June 23, 2024 11: 09am Pain of left scapula June 23, 2024 11 :09am Recurrent UTI (urinary tract infection) June 23, 2024 11:09am Dysuria September 09, 2024 9:59a m Additional Source Comments INFORMATION SOURCE (unrecogn ized section and content) DATE CREATED AUTHOR 08/28/2017 [facility] DATE CREATED AUTHOR AUTHOR'S ORGANIZ ATION 08/28/2017 [facility] DATE CREATED AUTHOR AUTHOR'S ORGANIZ ATION 08/28/2017 [facility] DATE CREATED AUTHOR AUTHOR'S ORGANIZ ATION 07/02/2020 [facility] DATE CREATED AUTHOR AUTHOR'S ORGANIZ ATION 09/24/2023 [facility] DATE CREATED AUTHOR AUTHOR'S ORGANIZ ATION 09/23/2024 [facility] REASON FOR VISIT (unrecogniz ed section and content) [facility] Care Teams (unrecognized sec tion and content) Team Status: Active Member Role Status Dates Carrillo Cota MD Primary Care Provider Active Team Status: Inactive Member Role Status Dates Carrillo Cota MD Primary Care Provider Active Start: April 15, 2024 End: April 15, 2024 Guanaco Weller DO Attending Provider Active S tart: April 15, 2024 End: April 15, 2024 Team Status: Active Member Role Status Dates Carrillo Cota MD Primary Care Provider Active Start: April 15, 2024 Guanaco Weller DO Attending Provider Active S tart: April 15, 2024 Team Status: Inactive Member Role Status Dates Carrillo Cota MD Primary Care Provider Active Start: August 21, 2023 End: August 21, 2023 Renetta Cherry APRN DIRECTOR PUBLIC-C Attending Provider Act solo Start: August 21, 2023 End: August 21, 2023 Team Status: Active Member Role Status Dates Carrillo Cota MD Primary Care Provider Active Start: August 22, 2023 JOYCE GonzalesC Attending Provider Act solo Start: August 22, 2023 Team Status: Inactive Member Role Status Dates Carrillo Cota MD Primary Care Provider Active Start: September 25, 2023 End: September 25, 2023 Guanaco Weller DO Attending Provider Active S tart: September 25, 2023 End: September 25, 2023 Team Status: Active Member Role Status Dates Carrillo Cota MD Primary Care Provider Active Start: September 25, 2023 Guanaco Weller DO Attending Provider Active S tart: September 25, 2023 Team Status: Active Member Role Status Dates Carrillo Cota MD Primary Care Provider Active Start: May 23, 2023 APRIL Arechiga Attending Provider Active Start : May 23, 2023 Team Status: Inactive Member Role Status Dates Carrillo Cota MD Primary Care Provider Active Start: September 26, 2023 End: September 26, 2023 Guanaco Weller DO Attending Provider Active S tart: September 26, 2023 End: September 26, 2023 Team Status: Active Member Role Status Dates Carrillo Cota MD Primary Care Provider Active Start: September 26, 2023 Guanaco Weller DO Attending Provider, Other Provide r Active Start: September 26, 2023 Team Status: Inactive Member Role Status Dates Carrillo Cota MD Primary Care Provider Active Start: September 27, 2023 End: September 27, 2023 Sally Gonzales MD Emergency Provider Active Start: September 27, 2023 End: September 27, 2023 Team Status: Active Member Role Status Dates Carrillo Cota MD Primary Care Provider Active Start: October 16, 2023 Guanaco Weller DO Attending Provider Active S tart: October 16, 2023 Team Status: Inactive Member Role Status Dates Carrillo Cota MD Primary Care Provider Active Start: October 16, 2023 End: October 16, 2023 Guanaco Weller DO Attending Provider Active S tart: October 16, 2023 End: October 16, 2023 Team Status: Inactive Member Role Status Dates Carrillo Cota MD Primary Care Provider Active Start: October 16, 2023 End: October 16, 2023 Guanaco Weller DO Active Start: October 16, 2023 End: October 16, 2023 BEN Montero Attending Provider Active Start: October 16, 2023 End: October 16, 2023 Team Status: Inactive Member Role Status Dates Carrillo Cota MD Primary Care Provider Active Start: November 06, 2023 End: November 06, 2023 Guanaco Weller DO Attending Provider Active S tart: November 06, 2023 End: November 06, 2023 Team Status: Active Member Role Status Dates Carrillo Cota MD Primary Care Provider Active Start: November 06, 2023 Guanaco Weller DO Attending Provider Active S tart: November 06, 2023 Team Status: Inactive Member Role Status Dates Carrillo Cota MD Primary Care Provider Active Start: December 04, 2023 End: December 04, 2023 Guanaco Weller DO Attending Provider Active S tart: December 04, 2023 End: December 04, 2023 Team Status: Inactive Member Role Status Dates Carrillo Cota MD Primary Care Provider Active Start: January 15, 2024 End: January 15, 2024 Guanaco Weller DO Attending Provider Active S tart: January 15, 2024 End: January 15, 2024 Team Status: Inactive Member Role Status Dates Carrillo Cota MD Primary Care Provider Active Start: May 28, 2024 End: May 28, 2024 Sandy Fonseca APRN Attending Provider Active Start: May 28, 2024 End: May 28, 2024 Team Status: Inactive Member Role Status Dates Carrillo Cota MD Primary Care Provide r, Attending Provider Active Start: June 18, 2024 End: June 18, 2024 Team Status: Inactive Member Role Status Dates Carrillo Cota MD Attending Provider Active St art: June 18, 2024 End: June 18, 2024 Team Status: Active Member Role Status Dates Carrillo Cota MD Primary Care Provide r, Attending Provider Active Start: June 23, 2024 Team Status: Inactive Member Role Status Dates Carrillo Cota MD Primary Care Provide r, Attending Provider Active Start: June 23, 2024 End: June 23, 2024 Team Status: Inactive Member Role Status Dates Carrillo Cota MD Primary Care Provider Active Start: June 18, 2024 End: June 18, 2024 Carrillo Cota MD Attending Provider Active St art: June 18, 2024 End: June 18, 2024 Team Status: Inactive Member Role Status Dates Carrillo Cota MD Primary Care Provider Active Start: June 23, 2024 End: June 23, 2024 Carrillo Cota MD Attending Provider Active St art: June 23, 2024 End: June 23, 2024 Team Status: Inactive Member Role Status Dates Carrillo Ctoa MD Primary Care Provider Active Start: September 09, 2024 End: September 09, 2024 Carrillo Cota MD Attending Provider Active St art: September 09, 2024 End: September 09, 2024 Team Status: Inactive Member Role Status Dates Carrillo Cota MD Attending Provider Active St art: September 09, 2024 End: September 09, 2024 Goals (unrecognized section and content) Goals may be documented in a n alternate section FOR RECORDS PERTAINING TO PATIENTS WHO ARE OR HAVE BEEN ENROLLED IN A CHEMICAL DEPENDENCY/SUBSTANCEABUSE PROGRAM, SOME INFORMATION MAY BE OMITTED. This clinical summary was aggregated from multiple sources. Caution should be exercised in using it in the provision of clinical care. This summary normalizes information from multiple sources, and as a consequence, information in this document may materially change the coding, format and clinical context of patient data. In addition, data may be omitted in some cases. CLINICAL DECISIONS SHOULD BE BASED ON THE PRIMARY CLINICAL RECORDS. [employer] provides no warranty or guarantee of the accuracy or completeness of information in this document.
== END 2024-09-24 11:22 | disposition home or self-care (01) ==
LOC: MAMMO 11:21
PROVIDERS: PCP Family Medicine; Visit Provider Family Medicine
DX: Z12.31 Encounter for screening mammogram for malignant neoplasm of breast (principal); Z80.3 Family history of malignant neoplasm of breast; Z80.0 Family history of malignant neoplasm of digestive organs; Z80.41 Family history of malignant neoplasm of ovary
CPT/HCPCS: 77063; 77067